=== PATIENT | male | born 1965 | race Caucasian/White ===

== ENCOUNTER 2017-07-15 05:28 | Inpatient (IN) | payer MEDICAID ==
[~2017-07-15] VITALS: Ht 185.4 cm; Wt 81.4 kg
[~2017-07-15 05:28] MED LIST: NAPROSYN500 MG PO; NORCO 5-325 TA1 EACH PO; TOPROL XL100 MG; TRAMADOL 50 MG50 MG PO
[2017-07-15 05:30] VITALS: BP 158/102
[2017-07-15] MEDS ORDERED: LASIX 20 MG TAB20 MG PO (05:39)
[2017-07-15] MEDS ORDERED: CARVEDILOL12.5 MG PO (05:40)
[2017-07-15] MEDS ORDERED: LISINOPRIL10 MG PO (05:40)
[2017-07-15] MEDS ORDERED: PACERONE100 MG PO (05:40)
[2017-07-15 05:47] LABS: ABSOLUTE BASOPHILS 0.1 thou/uL (0.0-0.2); ABSOLUTE EOSINOPHILS 0.1 thou/uL (0.0-0.7); ABSOLUTE LYMPHOCYTES 2.7 thou/uL (0.8-5.3); ABSOLUTE MONOCYTES 0.4 thou/uL (0.0-1.2); ABSOLUTE NEUTROPHILS 6.3 thou/uL (1.6-8.1); BASOPHILS 0.7 %; EOSINOPHILS 0.8 %; HEMATOCRIT 43.6 % (42.0-52.0); HEMOGLOBIN 14.4 gm/dL (14.0-18.0); LYMPHOCYTES 28.4 %; MCH 30.4 pg (26.0-34.0); MCHC 32.9 g/dL (28.0-37.0); MCV 92.5 fL (80.0-100.0); MONOCYTES 4.5 %; MPV 7.8 fl. (7.2-11.1); NUCLEATED RBCS 0 /100WBC; PLATELET COUNT* 315 thou/uL (150-400); POLYS 65.6 %; RBC 4.72 mil/uL (4.50-6.00); RDW-CV 14.8 % (10.5-14.5); WBC 9.6 thou/uL (4.0-11.0)
[2017-07-15 06:01] LABS: ANION GAP 8 mmol/L (7-16); BUN 19 mg/dL (7-18); CALCIUM 8.4 mg/dL (8.5-10.1); CHLORIDE 106 mmol/L (98-107); CO2 26 mmol/L (21-32); CREATININE 1.2 mg/dL (0.6-1.3); GLUCOSE 125 mg/dL (70-99); POTASSIUM 4.5 mmol/L (3.5-5.1); SODIUM 140 mmol/L (136-145)
--- NOTE | 2017-07-15 06:08 | NUR ---
RT HERE FOR BREATHING TREATMENT
[2017-07-15 06:12] LABS: ALBUMIN 3.1 g/dL (3.4-5.0); ALKALINE PHOSPHATASE 75 U/L (46-116); LIPASE 59 U/L (73-393); SGOT 30 U/L (15-37); SGPT 47 U/L (30-65); TOTAL BILIRUBIN 0.9 mg/dL (<0.1-1.0); TOTAL PROTEIN 7.2 g/dL (6.4-8.2); TROPONIN-I LEVEL <0.06 ng/mL (<0.06)
[2017-07-15 06:15] LABS: URINE BLOOD NEGATIVE (Negative); URINE CLARITY CLEAR; URINE COLOR YELLOW; URINE GLUCOSE-RANDOM NEGATIVE (Negative); URINE KETONES NEGATIVE (Negative); URINE LEUKOCYTES-REFLEX NEGATIVE (Negative); URINE NITRITE-REFLEX NEGATIVE (Negative); URINE PROTEIN 2+ (Negative); URINE SPECIFIC GRAVITY >= 1.030 (1.005-1.030); URINE UROBILINOGEN 0.2 E.U./dl (0.2-1.0)
[2017-07-15 06:17] LABS: ICTOTEST (BILI CONFIRMATORY) Negative (Negative); URINE BILIRUBIN 1+ (Negative)
[2017-07-15 06:22] LABS: AMP/METHAMP Negative (Negative); BACTERIA-REFLEX 1-9 Few /HPF (None Seen); BARBITURATES Negative (Negative); BENZODIAZEPINES Negative (Negative); CASTS None Seen /LPF (None Seen); COCAINE Negative (Negative); CRYSTALS None Seen /LPF (None Seen); METHADONE Negative (Negative); MUCUS >6 Heavy strn/LPF (None Seen); OPIATES Negative (Negative); PCP Negative (Negative); SQUAMOUS 0-3 Few /LPF (0-3); THC POSITIVE (Negative); URINE RBC 0-2 Rare /HPF (0-2); URINE WBC-REFLEX 0-5 Rare /HPF (0-5)
--- NOTE | 2017-07-15 09:19 | NUR ---
BREAKFAST TRAY PROVIDED FOR PT
[2017-07-15 11:13] VITALS: BP 135/97
--- NOTE | 2017-07-15 12:53 | EKG ---
[place] [address] ELECTROCARDIOGRAM REPORT Name: POP FABIAN Room: [place] [address] ADM IN M.R.#: [id number] Admission: 07/15/17 Attend Phys: Mynor Peralta Discharge: Date of : 69 Report #: [id number] THIS REPORT FOR: //name// [facility] ED Test Date: 2017-07-15 Test Time: 05:33:05 Pat Name: POP FABIAN Department: Room: [place] [address] Gender: M Harness Mender: ANA Nevarez : 1965 Requested By: Sanjana Verdin Order Number: [id number] Jami MD: Chris Noel Measurements Intervals [place] Rate: 103 P: 67 MN: 195 QRS: 21 QRSD: 94 T: 66 QT: 368 QTc: 482 Interpretive Statements Sinus tachycardia Probable left atrial enlargement Abnormal R-wave progression, late transition Baseline wander in lead(s) V1 No previous ECG available for comparison Electronically Signed On 07-15-2017 12:53:08 CORPORATE INTERN by Chris Noel [email or web address] <ELECTRONICALLY SIGNED> By: Chris Noel MD, [facility] 07/15/17 1253 [id number] [id number] Chris Noel MD, [facility] /EPI
[2017-07-15 13:57] VITALS: BP 123/92
--- NOTE | 2017-07-15 15:40 | NUR ---
RECIEVED REPORT VIA PHONE FROM MARC IN ED. ASSUMED CARE OF PT AT 1400. PT A/O X 4, VSS, 99% ON RA. TRACING NSR ON MONITOR. IV ACCESS LEFT AC 20 GAUGE SL. PT C/O ABDOMINAL PAIN AROUND THE UMBILICUS 11/23. MESSAGE PUT OUT TO ADMITTING DOCTOR FOR PAIN MEDICATIONS. PT IS WAITING FOR ECHO TO BE DONE. PT IS CALM, COOPERATIVE, AND MAKING JOKES WITH NURSING STAFF. PT WILL BE UP AD CARLOS TOLERATED. CALL LIGHT AND PERSONAL BELONGINGS WITHIN REACH RESIDENT CAME TO SEE PT AND ORDERED PAIN MEDICATION. YOUTH COUNSELOR CAME TO PREFORM ECHO IN PT ROOM.
--- NOTE | 2017-07-15 16:27 | 2DMMODE ---
[place] [address] 2 D/M-MODE ECHOCARDIOGRAM Name: POP FABIANMELBA Room: 231- ADM IN [facility]#: [id number] Admission: 07/15/17 Attend Phys: Hugh Edge Discharge: Date of : 69 Date of Service: 07/15/17 1627 Report #: [id number] THIS REPORT FOR: //name// APPROVED REPORT Study performed: 07/15/2017 15:39:16 EXAM: Comprehensive 2D, Doppler, and color-flow Echocardiogram Patient Location: In-Patient Room #: 231 Status: routine BSA: 2.06 HR: 82 bpm BP: 135/973 mmHg Rhythm: NSR Other Information Study Quality: Good Indications Congestive Heart Failure Dyspnea Cardiomegaly 2D Dimensions LVEF(%): 8.37 (>50%) IVSd: 10.15 (7-11mm) LVOT Diam: 22.20 (18-24mm) LVDd: 68.59 mm PWd: 9.07 (7-11mm) Ascending Ao: 33.85 (22-36mm) LVDs: 65.99 (25-40mm) Aortic Root: 31.69 mm Jordan's LVEF: 8.37 % Volumes Left Atrial Volume (Systole) LA ESV Index: 58.10 mL/m2 Aortic Valve AoV Peak Kulwinder.: 0.81 m/s AO Peak Gr.: 2.66 mmHg LVOT Max P.39 mmHg AO Mean Gr.: 1.76 mmHg LVOT Mean P.63 mmHg LVOT Max V: 0.59 m/s AO V2 VTI: 10.86 cm LVOT Mean V: 0.37 m/s EZEQUIEL (VTI): 2.57 cm2 LVOT V1 VTI: 7.22 [place] [address] 2 D/M-MODE ECHOCARDIOGRAM Name: POP FABIAN Room: [address] IN .R.#: [id number] Admission: 07/15/17 Attend Phys: Hugh Edge Discharge: Date of : 69 Date of Service: 07/15/17 1627 Report #: [id number] Mitral Valve E/A Ratio: 1.95 MV Decel. Time: 198.91 ms MV E Max Kulwinder.: 0.60 m/s MV PHT: 57.68 ms MVA (PHT): 3.81 cm2 TDI E/Lateral E': 10.00 E/Medial E': 15.00 Medial E' Kulwinder.: 0.04 m/s Lateral E' Kulwinder.: 0.06 m/s Pulmonary Valve PV Peak Kulwinder.: 0.60 m/s PV Peak Gr.: 1.43 mmHg Tricuspid Valve TR Peak Gr.: 16.75 mmHg RVSP: 21.00 mmHg Left Ventricle Left ventricle is moderately dilated. There is severe global hypokinesis. There is normal left ventricular wall thickness. Left ventricular systolic function is severely decreased. LVEF is 10-15%. Transmitral Doppler flow pattern suggests restrictive physiology. Right Ventricle Right ventricle is moderately dilated. The right ventricular systolic function is normal. Atria Left atrium is severely dilated. Right atrium is moderately dilated. Aortic Valve The aortic valve is normal in structure. No aortic regurgitation is present. There is no aortic valvular stenosis. Mitral Valve The mitral valve is normal in structure. Mild mitral regurgitation. No evidence of mitral valve stenosis. Tricuspid Valve The tricuspid valve is normal in structure. Moderate tricuspid regurgitation. The RVSP is 40 mmHg[place] [address] 2 D/M-MODE ECHOCARDIOGRAM Name: POP FABIAN Room: [address] IN [facility].#: [id number] Admission: 07/15/17 Attend Phys: Hugh Edge Discharge: Date of : 69 Date of Service: 07/15/17 1627 Report #: [id number] The pulmonary valve is normal in structure. Trace pulmonic regurgitation. Great Vessels The aortic root is normal in size. The IVC is dilated. Pericardium There is no pericardial effusion. <Conclusion> Left ventricle is moderately dilated. There is normal left ventricular wall thickness. Left ventricular systolic function is severely decreased. LVEF is 10-15%. Transmitral Doppler flow pattern suggests restrictive physiology. Right ventricle is moderately dilated. Left atrium is severely dilated. Right atrium is moderately dilated. Mild mitral regurgitation. Moderate tricuspid regurgitation. The RVSP is 40 mmHg. The IVC is dilated. <ELECTRONICALLY SIGNED> By: Chris Noel MD, FACC 07/15/17 1627 [id number] Chris Noel MD, FACC /INF
--- NOTE | 2017-07-15 18:48 | NUR ---
PT HAS BEEN A/O X 4, VSS, TRACING NSR ON MONITOR. PT HAS CLEAR BREATH SOUNDS.O2 SAT 99% ON RA. LEFT AC IV SALINE LOCKED. PT IS UP SELF IN ROOM WITH BRP. PT HAS BEEN EDUCATED TO CALL TO HAVE SCD CUFFS REMOVED OR TO REMOVE THEM HIMSELF. GI HAS BEEN CONSULTED, ANTICIPATE THEM TO ROUND TOMORROW. PT PREFERS TO GO BY [facility].PAIN CONTROLLED WITH IV PAIN MEDICATIONS. PLAN OF CARE DISCUSSED WITH PT. PROGRESSING TOWARDS GOALS. PT RESTING IN BED WITH CALL LIGHT AND PERSONAL BELONGINGS WITHIN REACH.
[2017-07-15 20:00] VITALS: BP 102/77
[2017-07-16 00:01] VITALS: BP 108/67
[2017-07-16 04:00] VITALS: BP 129/84
--- NOTE | 2017-07-16 04:22 | NUR ---
this nurse assumes care of pt 07/15/17 at 1930, pt is alert and oriented x4, complains of and is medicated for abdominal pain at bedtime, pt rests quietly throughout the night with no further complaints/concerns expressed, pt tracing sinus rhythm with 1st deg av block on cardiac surgeon, pt denies chest pain/ soa, remains on room air, up for bathroom privelages ad etta, pt continues progressing towards goals
[2017-07-16 05:27] LABS: HEMATOCRIT 38.3 % (42.0-52.0); HEMOGLOBIN 12.9 gm/dL (14.0-18.0); MCH 30.2 pg (26.0-34.0); MCHC 33.6 g/dL (28.0-37.0); MCV 89.8 fL (80.0-100.0); RBC 4.26 mil/uL (4.50-6.00); RDW-CV 14.6 % (10.5-14.5); WBC 7.9 thou/uL (4.0-11.0)
[2017-07-16 05:39] LABS: ALBUMIN 2.7 g/dL (3.4-5.0); CALCIUM 8.5 mg/dL (8.5-10.1); CREATININE 1.3 mg/dL (0.6-1.3); POTASSIUM 3.6 mmol/L (3.5-5.1); TOTAL BILIRUBIN 1.3 mg/dL (<0.1-1.0); TOTAL PROTEIN 6.4 g/dL (6.4-8.2)
[2017-07-16 08:00] VITALS: BP 113/70
--- NOTE | 2017-07-16 08:00 | NUR ---
AM ASSESSMENT COMPLETE, DEFER TO COMPUTER CHARTING. REGISTRATION MANAGER TRACKING SR WITH 1ST AVB. DENIES CHEST PAIN, DIZZINESS AT THIS TIME. ABD TENDER TO TOUCH, DENIES NAUSEA. CALL LIGHT WITHIN REACH. WILL MONITOR.
[2017-07-16 11:40] VITALS: BP 104/73
--- NOTE | 2017-07-16 14:45 | NUR ---
ATTEMPTED TO MEET WITH PT, HE STATED IT WASN'T A 'GOOD TIME.' TO HAVE PROCEDURE THIS AFTERNOON. WILL TRY LATER
--- NOTE | 2017-07-16 15:36 | NUR ---
RECIEVED REPORT FROM MCIKY AND ASSUMED CARE AT 1500. PT TAKEN DOWN FOR PIPIDA SCAN AT 1515. PT A/O X4 AND VSS.
[2017-07-16 17:07] VITALS: BP 124/89
--- NOTE | 2017-07-16 18:51 | NUR ---
PT HAS AMBULATED THE HALLS SEVERAL TIMES THIS EVENING. HAS A GOOD APPETITE. PT HAS EGD IN MORNING AND NEEDS TO BE NPO AT MIDNIGHT. PT DENIES PAIN AT THIS TIME AND IS RESTING IN CHAIR WITH CALL LIGHT IN REACH.EDUCATION GIVEN AND HOURLY ROUNDING COMPLETED FOR PT SAFETY.
[2017-07-16 20:00] VITALS: BP 109/64
[2017-07-17] VITALS: BP 109/79
[2017-07-17 04:54] VITALS: BP 105/73
--- NOTE | 2017-07-17 07:03 | NUR ---
ASSUMED CARE OF PT AT 1930, NURSING ASSESSMENT COMPLETED AT START OF SHIFT, PT CONTINUES ON TELE MONITOR TRACING SINUS RHYTHM, PT NPO AFTER MIDNIGHT FOR EGD. HOURLY ROUNDING COMPLETED, CALL LIGHT WITHIN REACH. PRN PAIN MEDICATION ADMINISTERED X1 THIS SHIFT. PT PROGRESSING TOWARDS GOALS.
[2017-07-17 09:05] LABS: ABSOLUTE BASOPHILS 0.1 thou/uL (0.0-0.2); ABSOLUTE LYMPHOCYTES 2.3 thou/uL (0.8-5.3); ABSOLUTE MONOCYTES 0.5 thou/uL (0.0-1.2); BASOPHILS 0.9 %; EOSINOPHILS 0.7 %; HEMATOCRIT 39.3 % (42.0-52.0); HEMOGLOBIN 13.2 gm/dL (14.0-18.0); LYMPHOCYTES 33.8 %; MCH 30.1 pg (26.0-34.0); MCHC 33.6 g/dL (28.0-37.0); MCV 89.5 fL (80.0-100.0); MONOCYTES 7.3 %; MPV 8.3 fl. (7.2-11.1); NUCLEATED RBCS 0 /100WBC; PLATELET COUNT* 264 thou/uL (150-400); POLYS 57.3 %; RBC 4.39 mil/uL (4.50-6.00); RDW-CV 14.6 % (10.5-14.5); WBC 6.9 thou/uL (4.0-11.0)
[2017-07-17 09:20] LABS: ALBUMIN 2.7 g/dL (3.4-5.0); CALCIUM 8.4 mg/dL (8.5-10.1); CREATININE 1.2 mg/dL (0.6-1.3); POTASSIUM 3.9 mmol/L (3.5-5.1); TOTAL BILIRUBIN 1.4 mg/dL (<0.1-1.0); TOTAL PROTEIN 6.3 g/dL (6.4-8.2)
[2017-07-17 10:35] VITALS: BP 112/74
--- NOTE | 2017-07-17 10:35 | NUR ---
ASSUMED PT CARE 0730. AT SHIFT CHANGE PT SLEEPING. WHEN RN WENT IN TO ASSESS PT , PT NOT IN ROOM. PT NOT FOUND ON UNIT. PT RETURNED TO ROOM WITH IN MINUTES AND WAS EDUCATED TO STAY ON UNIT. PT AGITATED/ ANXIOUS/ ASKED TO EAT. PT HAD BEEN NPO FOR EGD. EDG CANCELLED PER GI. WHEN CANCELLED DIET ORDERED FOR PT. PT ATE AND THEN AGREEABLE TO ASSESSMENT. MEDICATIONS ADMININSTERED PER JUL.
[2017-07-17 12:00] VITALS: BP 116/67
--- NOTE | 2017-07-17 12:35 | NUR ---
RECEIVED DISCHARGE ORDERS. IV AND SPEEDER WORKER DC'D. PT EDUCATED ON F/U APPOINTMENTS AND SYMPTOMS TO NOTIFY TO DR. PT COMMUNICATES UNDERSTANDING. PT ASKED FOR URINE DRUG SCREEN TEST. UDS PRINTED AND GIVEN TO PT PER PT REQUEST.
--- NOTE | 2017-07-22 14:51 | CON ---
[address] [address] CONSULTATION Name: CAREN,POP CORTEZ Room: [address] IN M.R.#: [id number] Admission: 07/15/17 Attend Phys: Mynor Peralta Discharge: 07/17/17 Date of : 69 Report #: [id number] THIS REPORT FOR: //name// CC: Paul Edge DATE OF SERVICE: 07/16/2017 ADDENDUM The patient with history of peptic ulcer disease and multiple endoscopies who presents with abdominal pain. Abdominal ultrasound suggestive of pericholecystic fluid and some thickening of the gallbladder. There is no evidence of cholelithiasis or choledocholithiasis. Liver function tests are all within normal. Bilirubin is mildly elevated at 1.3. We will follow up with a HIDA scan, which has been ordered and based on that, we will make recommendation. The patient is agreeable with plan. <ELECTRONICALLY SIGNED> By: Pushpa Marcano MD 07/22/17 1451 1635 [id number] Marcano MD /nt
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
== END 2017-07-17 13:14 | disposition home or self-care (01) | DRG 292 ==
LOC: M.ERS 05:28 → M.TBA-ER 07:22 → M.2W 14:09
PROVIDERS: Emergency Medicine; ADMIT Internal Medicine
DX: I11.0 Hypertensive heart disease with heart failure (principal); R18.8 Other ascites; I50.9 Heart failure, unspecified; R10.13 Epigastric pain; R16.0 Hepatomegaly, not elsewhere classified; K82.8 Other specified diseases of gallbladder; I42.9 Cardiomyopathy, unspecified; Z79.899 Other long term (current) drug therapy; Z86.73 Personal history of transient ischemic attack (TIA), and cerebral infarction without residual deficits; Z87.11 Personal history of peptic ulcer disease

== ENCOUNTER 2017-10-07 12:01 | Inpatient (IN) | payer MEDICAID ==
[~2017-10-07] VITALS: Ht 185.4 cm; Wt 84.4 kg
--- NOTE | ~2017-10-07 | PROC ---
[address] [address] PROCEDURE REPORT Name: POP FABIAN Room: [address] IN M.R.#: [id number] Admission: 10/07/17 Attend Phys: Dimas Pereira Discharge: 10/11/17 Date of : 69 Report #: [id number] THIS REPORT FOR: //name// For GI report, please see the Provation report in Perceptive 7 content. By: 0659Medical Records Staff BRIGIDO /GUSTAVO
[~2017-10-07 12:01] MED LIST changes: +CARVEDILOL12.5 MG PO; +LASIX 20 MG TAB20 MG PO; +LISINOPRIL10 MG PO; +PACERONE100 MG PO
[2017-10-07 12:03] VITALS: BP 156/118
[2017-10-07 12:44] LABS: ABSOLUTE BASOPHILS 0.1 thou/uL (0.0-0.2); ABSOLUTE EOSINOPHILS 0.1 thou/uL (0.0-0.7); ABSOLUTE LYMPHOCYTES 1.6 thou/uL (0.8-5.3); ABSOLUTE MONOCYTES 0.5 thou/uL (0.0-1.2); ABSOLUTE NEUTROPHILS 6.4 thou/uL (1.6-8.1); BASOPHILS 0.9 %; EOSINOPHILS 0.6 %; HEMATOCRIT 44.8 % (42.0-52.0); HEMOGLOBIN 14.7 gm/dL (14.0-18.0); LYMPHOCYTES 18.8 %; MCH 29.9 pg (26.0-34.0); MCHC 32.8 g/dL (28.0-37.0); MCV 91.4 fL (80.0-100.0); MONOCYTES 5.8 %; MPV 8.1 fl. (7.2-11.1); NUCLEATED RBCS 0 /100WBC; PLATELET COUNT* 241 thou/uL (150-400); POLYS 73.9 %; RDW-CV 17.4 % (10.5-14.5); WBC 8.7 thou/uL (4.0-11.0)
[2017-10-07 12:52] LABS: APTT 24.7 Seconds (25.0-31.3); INR 1.2; PROTIME 11.3 Seconds (9.20-11.50)
[2017-10-07 12:53] LABS: ANION GAP 7 mmol/L (7-16); BUN 18 mg/dL (7-18); CALCIUM 8.3 mg/dL (8.5-10.1); CHLORIDE 105 mmol/L (98-107); CO2 27 mmol/L (21-32); GLUCOSE 97 mg/dL (70-99); POTASSIUM 4.1 mmol/L (3.5-5.1); SODIUM 139 mmol/L (136-145)
[2017-10-07 13:03] LABS: ALBUMIN 3.2 g/dL (3.4-5.0); ALKALINE PHOSPHATASE 82 U/L (46-116); LIPASE 48 U/L (73-393); MAGNESIUM 1.9 mg/dL (1.8-2.4); NT-PRO BRAIN NAT PEPTIDE 15961 pg/mL (<300); SGOT 31 U/L (15-37); SGPT 39 U/L (30-65); TOTAL BILIRUBIN 0.8 mg/dL (<0.1-1.0); TOTAL PROTEIN 7.2 g/dL (6.4-8.2); TROPONIN-I LEVEL <0.06 ng/mL (<0.06)
--- NOTE | 2017-10-07 14:15 | NUR ---
ISIS NOTIFIED UPON PT RETURN FROM CT. PT CONNECTED TO MONITOR AND O2
[2017-10-07 16:15] VITALS: BP 144/102
[2017-10-07 16:24] VITALS: BP 140/106
--- NOTE | 2017-10-07 16:49 | NUR ---
RECIEVED REPORT FROM [facility] RN IN ER OF EXPECTED TRANSFER AT 1528- DX: CHEST/ABD PAIN WITH SOA X2 DAYS- PT ARRIVED TO UNIT VIA CART AT 1600- SBA TO BED FOR SAFETY- NURSE OBGYN PLACED INDICATED, SR NOTED- VS 97.4 20 140/106 83 100% ON RA- PT A&O X4- CONTINENT OF BOWEL AND BLADDER- LCTA, LABORED BREATHING AT TIMES NOTED- PT REPORTS SOA ON EXERTION- ABDOMEN SOFT/ROUND/NON-TENDER, BS X4 QUADS- LAST BM REPORTED 10/06/17- PT REPORTS TIGHNESS TO BE RESOLVED TO ABDOMEN POST LASIX ADMINISTRATION IN ER- 1+ PITTING EDEMA WITH SOME DISCOLORATION NOTED TO BLE, NOTED TO BE COOL WELL- C/D/I, WITH NOTED TATOOS- IV NOTED TO LEFT FA AND RIGHT AC INTACT AND SL- PT STAES HE QUIT SMOKING ABOUT 2 WEEKS AGO, BUT STATES HE DIDN'T SMOKE A WHOLE LOT TO BEGIN WITH- REPORTS TO BE CURRENT MARIJUANA SMOKER, AND 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
[2017-10-08 00:54] VITALS: BP 128/100
--- NOTE | 2017-10-08 04:03 | NUR ---
ASSUMED PT CARE AT 1930. ASSESSMENT COMPLETED CHARTED. A & O X 4, ABLE TO MAKE NEEDS KNOWN, PAIN TO ABDOMEN, SOME SHAKING NOTED, GOT IMPATIENT ABOUT GETTING PAIN MEDICATION, APPOLOGIZED SEVERAL TIMES, PT SLEEPING AT THIS TIME. STATED EARLIER THAT HE WANTED TO PASS WITH DIGNITY, BUT NOT NOW. VSS. UP AD CARLOS, SR ON THE MONITOR. WILL CONTINUE WITH PLAN OF CARE.
[2017-10-08 04:27] VITALS: BP 152/105
[2017-10-08 08:00] VITALS: BP 154/118
--- NOTE | 2017-10-08 09:01 | NUR ---
vss, assumed care IN THE AM, ASSESSMENT PERFORMED AND CHARTED, FALL PRECAUTIONS IN PLACE AND CALL LIGHT IN REACH, PT IS A&04 AND UP AD CARLOS, TRACING SR ON THE MONITOR AND STATES PAIN IN HIS BACK, PT GOAL IS TO SIT UP IN CHAIR AND IMPROVE ACTIVITY, WILL FOLLOW WITH PLAN OF CARE.
[2017-10-08 11:30] VITALS: BP 139/102
--- NOTE | 2017-10-08 14:30 | NUR ---
Pt is A&O. Resides at home alone. Independent with ADLs. No DME. No hx of HH or SNF. Supportive family that is involved in POC. Goal is to return home at dc. Following for disposition.
[2017-10-08 16:17] VITALS: BP 126/95
--- NOTE | 2017-10-08 17:06 | EKG ---
[place] [address] ELECTROCARDIOGRAM REPORT Name: POP FABIAN Room: [address] ADM IN M.R.#: [id number] Admission: 10/07/17 Attend Phys: Dimas Pereira Discharge: Date of : 69 Report #: [id number] THIS REPORT FOR: //name// [facility] ED Test Date: 2017-10-07 Test Time: 12:04:41 Pat Name: POP FABIAN Department: Room: Gender: M Disulfurizer Tender: Roque GOODWIN : 1965 Requested By: Martin Cramer Order Number: [id number] MD: Omer Gonsalves Measurements Intervals [place] Rate: 97 P: 82 MN: 206 QRS: 16 QRSD: 106 T: 7 QT: 381 QTc: 484 Interpretive Statements Sinus rhythm Prolonged MN interval Probable left atrial enlargement Left ventricular hypertrophy Borderline prolonged QT interval Compared to ECG 07/15/2017 05:33:05 First degree AV block now present Left ventricular hypertrophy now present Sinus tachycardia no longer present Electronically Signed On 10-08-2017 17:06:23 CDT by Omer Gonsalves [email or web address] <ELECTRONICALLY SIGNED> By: Omer Gonsalves MD, [facility] 10/08/17 1706 1204 1204 Omer Gonsalves MD, FAC /EPI
--- NOTE | 2017-10-08 18:09 | NUR ---
VSS. PT IS PROGRESSING TOWARDS GOAL, PT IS A&O4 BUT IS SLEEPY, PT IS TRACING SR ON THE MONITOR, HIS PAIN HAS BEEN WELL CONTROLED, EDEMA HAS DECREASED IN LEGS AND ABDOMIN AND IS TRACE AT THIS TIME IN LEGS, PT GETS UP AD CARLOS AND HOURLY ROUNDS COMPLETED.
[2017-10-08 20:00] VITALS: BP 141/103
[2017-10-09 00:39] VITALS: BP 148/95
--- NOTE | 2017-10-09 02:58 | NUR ---
ASSUMED PT CARE AT 1930, PT IS A&OX4, PT IS TRACING NSR WITH A 1DAVB ON THE MONITOR, ONRA SATTING MID TO HIGH 90'S. AT THE START OF SHIFT PT VOMITIED ROUGHLY 300 MLS. NOTIFIED AND NEW ORDERS GIVEN. PT C/O ABD PAIN THIS SHIFT, PRN PAIN MEDICATIONS GIVEN PER JUL. PT IS UP AD CARLOS IN HIS ROOM AND APPEARS STABLE ON HIS FEET. BED IN LOW POSITION, CALL LIGHT IN REACH,HOURLY ROUNDING COMPLETED FOR PT SAFETY.
[2017-10-09 04:23] VITALS: BP 102/40; BP 149/100
[2017-10-09 08:00] VITALS: BP 144/102
--- NOTE | 2017-10-09 08:00 | NUR ---
PT RESTING IN BED, WITHOUT C/O , APPEARS O X 4, DENIES CHEST PAIN, SOB, C/O SOME ABDOMINAL PAIN,, STATES ADEQ PAIN RELIEF EARLEIR WITH IV DIILAUDID, SL, SR C 1ST avb, PER REPORT EF 12 %
[2017-10-09 11:30] VITALS: BP 132/92
[2017-10-09 16:00] VITALS: BP 110/69
--- NOTE | 2017-10-09 18:59 | NUR ---
PT RESTING IN BED, REMAINS O X 4, DENIES CHEST PAIN, SOB, , PT STAYED IN BED, MOST OF DAY. C/O ABDOMINAL PAIN , IN AFTERNOON, REPORTS GOOD RELIEF C IV DILAUDID
[2017-10-09 20:00] VITALS: BP 118/87
[2017-10-10 00:38] VITALS: BP 101/74
[2017-10-10 04:38] VITALS: BP 111/77
[2017-10-10 05:04] LABS: HEMATOCRIT 39.9 % (42.0-52.0); HEMOGLOBIN 13.5 gm/dL (14.0-18.0); MCHC 33.9 g/dL (28.0-37.0); MCV 88.4 fL (80.0-100.0); MPV 8.3 fl. (7.2-11.1); RBC 4.51 mil/uL (4.50-6.00); RDW-CV 16.8 % (10.5-14.5); WBC 9.2 thou/uL (4.0-11.0)
[2017-10-10 05:28] LABS: CALCIUM 8.1 mg/dL (8.5-10.1); CREATININE 1.1 mg/dL (0.6-1.3); MAGNESIUM 1.9 mg/dL (1.8-2.4)
--- NOTE | 2017-10-10 06:02 | NUR ---
ASSUMED PT CARE AT 1930, PT IS A&OX4, PT IS TRACING NSR ON THE MONITOR, ON RA SATTING MID TO HIGH 90'S. PT C/O ABD PAIN THIS SHIFT, PRN PAIN MEDICATIONS GIVEN PER JUL. PT STATES RELIEF WITH MEDICATION. PT IS UP AD CARLOS IN HIS ROOM. APPEARS STABLE ON HIS FEET. BED IN LOW POSITION, CALL LIGHT IN REACH. HOURLY ROUNDING COMPLETED FOR PT SAFETY.
[2017-10-10 12:00] VITALS: BP 102/62
[2017-10-10 16:00] VITALS: BP 121/72
[2017-10-10 20:00] VITALS: BP 116/77
--- NOTE | 2017-10-10 20:19 | NUR ---
ASSUMED CARE OF PT AT 0730. PT CONTINUES TO BE A&O X4 CALM AND COOPERATIVE. PT VSS ON ROOM AIR AND TRACING SR WITH A FIRST DEGREE AV BLOCK. PT UP AD CARLOS IN ROOM. PT C/O ABD PAIN CONTROLLED WITH PRN PAIN MEDS. MEDICATIONS ADMINISTERED PER JUL. NURSING ASSESSMENT COMPLETED AND DOCUMENTED, NURSING WILL CONTINUE TO MONITOR.
[2017-10-11] VITALS (7 sets, daily range): BP systolic 113–142; BP diastolic 72–98
--- NOTE | 2017-10-11 04:24 | NUR ---
ASSUMED PT CARE AT 1930, PT IS A&OX4, PT C/O ABD PAIN, PRN PAIN MEDICATIONS GIVEN PER JUL. PT IS TRACING NSR ON THE MONITOR, WITH OCCASIONAL 1DAVB. PT IS ON RA SATTING MID TO HIGH 90'S. PT IS NPO AT THIS TIME FOR PENDING EGD. PT IS UP AD CARLOS IN HIS ROOM AND APPEARS STABLE ON HIS FEET. PT IS REQUESTED PAIN MEDICATION BE DC'D HE "WANTS TO WEAN OFF OF IT, IF IT IS NOT AVAILABLE I WILL NOT BE TEMPTED TO USE IT" THIS WILL BE OASSED ALONG TO MD WELL DAY RN. PT REWQUESTED THAT SPIRITUAL CARE COME VISIT WITH HIM IN THE AM. BED IN LOW POSITION, CALL LIGHT IN REACH, HOURLY ROUNDING COMPELTED FOR PT SAFETY.
--- NOTE | 2017-10-11 07:48 | NUR ---
Pt resting in bed, appears alert o x 4, denies chest pain, SOB, states sl abdominal pain, denies need for pain RX, NPO for EGD, consent signed, in chart
--- NOTE | 2017-10-11 08:22 | CON ---
[address] [address] CONSULTATION Name: POP FABIAN Room: [address] IN M.R.#: [id number] Admission: 10/07/17 Attend Phys: Dimas Pereira Discharge: Date of : 69 Report #: [id number] THIS REPORT FOR: //name// CC: Carlos A Bass MD DATE OF SERVICE: 10/08/2017 REQUESTING PHYSICIAN: Russ Solo MD REASON FOR CONSULT: Abdominal pain. HISTORY OF PRESENT ILLNESS: This is a 52-year-old male with a history of intermittent abdominal pain. The patient reports that his abdominal pain is better now. He has a history of peptic ulcer disease that goes back to 15 years ago. He had presented to hospital in July with similar symptoms. He denies any diarrhea, constipation, hematochezia or melena. He also denies any nausea or vomiting and hematemesis. PAST MEDICAL HISTORY: Significant for history of cardiomyopathy, CHF, hypertension, peptic ulcer disease, hernia repair, polysubstance abuse and dependence. ALLERGIES: No known drug allergy. MEDICATIONS: Please refer to hospital MAR. SOCIAL HISTORY: The patient reports that he may occasionally smoke marijuana, a couple of times a month. He also does occasionally smoke a cigarette, but does not drink alcohol. He is single and his daughter occasionally stays with him. FAMILY HISTORY: Negative for GI malignancy. PHYSICAL EXAMINATION: VITAL SIGNS: Reveals blood pressure of 126/95, respirations 19, pulse 102, temperature 97.4. LUNGS: Clear. CARDIOVASCULAR: Regular. ABDOMEN: Soft, nontender, nondistended. NEUROLOGIC: The patient is alert, oriented x 3. LABORATORY DATA: Reveal sodium of 139, potassium 4.1, BUN is 18, creatinine 1.0, glucose 97. AST is 31, ALT 39, total bilirubin is 0.8, alkaline phosphatase is 82. INR is 1.2. WBC is 8.7 with hemoglobin of 14.7 and platelet of 241. [place] [address] CONSULTATION Name: POP FABIAN Room: [address] IN ..#: [id number] Admission: 10/07/17 Attend Phys: Dimas Pereira Discharge: Date of : 69 Report #: [id number] IMAGING: CT of abdomen and pelvis was obtained on admission. There is a gallbladder wall thickening, unchanged from prior study. He also has abdominal ascites with no focal hepatic masses. ASSESSMENT AND PLAN: The patient with history of peptic ulcer disease dating back to 15 years ago. He has abdominal pain, which he claims is better. He has a cardiomyopathy and congestive heart failure with ejection fraction of 12%. In order for us to do any kind of procedure on him, we need Cardiology consult and clearance. Meanwhile, we will recommend daily PPI, Protonix 40 mg q.a.m. <ELECTRONICALLY SIGNED> By: Pushpa Marcano MD 10/11/17 0822 1712 [id number] Marcano MD /nt
--- NOTE | 2017-10-11 10:19 | NUR ---
PT REETURNED TO FLOOR FROM GI, , PT IS ALERT O X 4, DENIES CHEST PAIN, SOB, PAIN OR DISCOMFORT
[2017-10-11] MEDS ORDERED: CARVEDILOL25 MG PO (14:30)
[2017-10-11] MEDS ORDERED: PRINIVIL20 MG PO (14:31)
[2017-10-11] MEDS ORDERED: ALDACTONE25 MG PO (14:31)
[2017-10-11] MEDS ORDERED: PROTONIX 20 MG20 M1 PO (14:31)
--- NOTE | 2017-10-13 16:08 | PATH ---
[facility] [address] [place] [address] PATHOLOGY RPT PROCEDURE Name: POP FABIAN Room: [address] IN M.R.#: [id number] Admission: 10/07/17 Date of : 69 Discharge: 10/11/17 Report #: [id number] Path Case #: [id number] [facility] Accession Number: [id number] . 01 Material submitted: . DUODENAL BIOPSY R/O CELIAC SPRUE . 01 Clinical history: . R/O celiac sprue . 02 Diagnosis: Duodenal biopsy: - Normal duodenal mucosa. (ALEXSANDRA:db; 10/13/2017) LBQ/10/13/2017 . 02 Electronically signed: . Timo Falcon MD, Pathologist NPI- [id number] . 01 Gross description: . Received in formalin labeled "Pop Fabian, duodenal biopsy R/O celiac sprue," are four segments of sampson soft tissue measuring 0.7 x 0.5 x 0.3 cm in aggregate dimensions and ranging from 0.2 to 0.4 cm in maximum dimension. The specimen is submitted entirely in cassette A1. (DAC; 10/12/2017) XDC/XDC . 02 CPT . [id number] Performed at: [address], [place], [place] [id number] MD David Wilson MD Phone: [phone] Performed at: 02 [facility] [address], [place], [place] [id number] MD Timo Falcon MD Phone: [phone]
== END 2017-10-11 16:00 | disposition home or self-care (01) | DRG 291 ==
LOC: M.ERS 12:01 → M.TBA-ER 13:51 → M.2W 13:51
PROVIDERS: Emergency Medicine Emergency Medical Services; Family Medicine; ADMIT Internal Medicine
PROC: 0DJ08ZZ Inspection of Upper Intestinal Tract, Via Natural or Artificial Opening Endoscopic (ICD-10-PCS; principal; 2017-10-11)
DX: I11.0 Hypertensive heart disease with heart failure (principal); J96.01 Acute respiratory failure with hypoxia; J98.11 Atelectasis; I50.23 Acute on chronic systolic (congestive) heart failure; I42.8 Other cardiomyopathies; F12.90 Cannabis use, unspecified, uncomplicated; F41.9 Anxiety disorder, unspecified; I07.1 Rheumatic tricuspid insufficiency; I27.20 Pulmonary hypertension, unspecified; Z79.899 Other long term (current) drug therapy; Z87.11 Personal history of peptic ulcer disease; Z87.891 Personal history of nicotine dependence; Z82.49 Family history of ischemic heart disease and other diseases of the circulatory system

== ENCOUNTER 2017-10-16 21:08 | Emergency (ER) | payer MEDICAID ==
[~2017-10-16] VITALS: Ht 185.4 cm; Wt 81.7 kg
[~2017-10-16 21:08] MED LIST changes: +ALDACTONE25 MG PO; +CARVEDILOL25 MG PO; +PRINIVIL20 MG PO; +PROTONIX 20 MG20 M1 PO
[2017-10-16 22:22] LABS: ABSOLUTE BASOPHILS 0.1 thou/uL (0.0-0.2); ABSOLUTE LYMPHOCYTES 2.9 thou/uL (0.8-5.3); ABSOLUTE MONOCYTES 0.8 thou/uL (0.0-1.2); ABSOLUTE NEUTROPHILS 7.5 thou/uL (1.6-8.1); BASOPHILS 0.6 %; EOSINOPHILS 0.2 %; HEMOGLOBIN 15.2 gm/dL (14.0-18.0); LYMPHOCYTES 25.6 %; MCH 29.6 pg (26.0-34.0); MCV 89.9 fL (80.0-100.0); MONOCYTES 6.8 %; MPV 7.5 fl. (7.2-11.1); NUCLEATED RBCS 0 /100WBC; PLATELET COUNT* 268 thou/uL (150-400); POLYS 66.8 %; RBC 5.11 mil/uL (4.50-6.00); WBC 11.3 thou/uL (4.0-11.0)
[2017-10-16 22:26] LABS: CALCIUM 8.5 mg/dL (8.5-10.1); CREATININE 1.1 mg/dL (0.6-1.3); POTASSIUM 4.5 mmol/L (3.5-5.1)
[2017-10-16 22:27] LABS: APTT 26.3 Seconds (25.0-31.3); INR 1.3; PROTIME 12.7 Seconds (9.20-11.50)
[2017-10-16 22:39] LABS: ALBUMIN 3.2 g/dL (3.4-5.0); TOTAL BILIRUBIN 2.1 mg/dL (<0.1-1.0)
[2017-10-16 22:43] LABS: NT-PRO BRAIN NAT PEPTIDE 33908 pg/mL (<300); TROPONIN-I LEVEL <0.06 ng/mL (<0.06)
[2017-10-16 23:03] LABS: URINE BILIRUBIN NEGATIVE (Negative); URINE BLOOD TRACE (Negative); URINE CLARITY CLEAR; URINE COLOR YELLOW; URINE GLUCOSE-RANDOM NEGATIVE (Negative); URINE KETONES NEGATIVE (Negative); URINE LEUKOCYTES-REFLEX NEGATIVE (Negative); URINE NITRITE-REFLEX NEGATIVE (Negative); URINE PROTEIN 2+ (Negative); URINE UROBILINOGEN 0.2 E.U./dl (0.2-1.0)
[2017-10-16 23:11] LABS: AMP/METHAMP Negative (Negative); BARBITURATES Negative (Negative); BENZODIAZEPINES Negative (Negative); COCAINE Negative (Negative); METHADONE Negative (Negative); OPIATES Negative (Negative); PCP Negative (Negative); THC POSITIVE (Negative)
[2017-10-16 23:19] LABS: MUCUS 4-6 Moderate strn/LPF (None Seen); SQUAMOUS 0-3 Few /LPF (0-3); URINE RBC 3-10 Few /HPF (0-2); URINE WBC-REFLEX None Seen /HPF (0-5)
[2017-10-16 23:20] LABS: CRYSTALS None Seen /LPF (None Seen); HYALINE CASTS 0-3 Few /LPF (None Seen)
[2017-10-16] MEDS ORDERED: ULTRAM 50MG TAB50 MG PO (23:45)
[2017-10-16] MEDS ORDERED: REGLAN 10 MG TA10 MG PO (23:45)
[2017-10-16] MEDS ORDERED: AMBIEN 10 MG TA10 MG PO (23:45)
[2017-10-17 00:19] VITALS: BP 153/110
--- NOTE | 2017-10-17 14:56 | EKG ---
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 : 1965 Requested By: Debbie Washington Order Number: [id number] MD: Bharathi Amanda Measurements Intervals [place] Rate: 95 P: 119 FL: 207 QRS: 26 QRSD: 103 T: 209 QT: 385 QTc: 484 Interpretive Statements Sinus rhythm incomplete RBBB Prolonged FL interval Left atrial enlargement LVH with secondary repolarization abnormality Anterior infarct, age indeterminate Compared to ECG 10/07/2017 12:04:41 LEFT VENTRICULAR HYPERTROPHY now seen incomplete RIGHT BUNDLE BRANCH BLOCK noted Myocardial infarct finding now present Electronically Signed On 10-17-2017 14:55:56 CDT by Bharathi Amanda [email or web address] <ELECTRONICALLY SIGNED> By: Bharathi Amanda MD, [facility] 10/17/17 1455 2244 2244 Bharathi Amanda MD, [facility] /EPI
== END 2017-10-17 00:22 | disposition home or self-care (01) ==
LOC: M.ERS 21:08
PROVIDERS: Personal Emergency Response Attendant
DX: R18.8 Other ascites (principal); I11.0 Hypertensive heart disease with heart failure; I50.9 Heart failure, unspecified

== ENCOUNTER 2017-10-21 05:00 | Inpatient (IN) | payer MEDICAID ==
[~2017-10-21] VITALS: Ht 185.4 cm; Wt 67.1 kg
[~2017-10-21 05:00] MED LIST changes: +AMBIEN 10 MG TA10 MG PO; +REGLAN 10 MG TA10 MG PO; +ULTRAM 50MG TAB50 MG PO
[2017-10-21 05:07] VITALS: BP 110/68
[2017-10-21 05:39] LABS: ABSOLUTE BASOPHILS 0.1 thou/uL (0.0-0.2); ABSOLUTE LYMPHOCYTES 1.7 thou/uL (0.8-5.3); ABSOLUTE NEUTROPHILS 5.6 thou/uL (1.6-8.1); BASOPHILS 0.9 %; EOSINOPHILS 0.6 %; HEMATOCRIT 38.2 % (42.0-52.0); HEMOGLOBIN 12.7 gm/dL (14.0-18.0); LYMPHOCYTES 20.2 %; MCH 30.2 pg (26.0-34.0); MCHC 33.2 g/dL (28.0-37.0); MONOCYTES 11.3 %; MPV 7.8 fl. (7.2-11.1); NUCLEATED RBCS 0 /100WBC; PLATELET COUNT* 198 thou/uL (150-400); RDW-CV 16.8 % (10.5-14.5); WBC 8.4 thou/uL (4.0-11.0)
[2017-10-21 05:47] LABS: ANION GAP 9 mmol/L (7-16); BUN 25 mg/dL (7-18); CALCIUM 7.7 mg/dL (8.5-10.1); CHLORIDE 102 mmol/L (98-107); CO2 23 mmol/L (21-32); CREATININE 1.4 mg/dL (0.6-1.3); GLUCOSE 136 mg/dL (70-99); POTASSIUM 3.7 mmol/L (3.5-5.1); SODIUM 134 mmol/L (136-145)
[2017-10-21 05:52] LABS: ACETAMINOPHEN < 2 ug/mL (10-30); ALCOHOL < 10 mg/dL (<10)
[2017-10-21 05:53] LABS: SALICYLATE < 2.8 mg/dL (2.8-20.0)
[2017-10-21 05:58] LABS: ALBUMIN 2.7 g/dL (3.4-5.0); ALKALINE PHOSPHATASE 76 U/L (46-116); AMMONIA 32 umol/L (11-32); LIPASE 111 U/L (73-393); NT-PRO BRAIN NAT PEPTIDE 11942 pg/mL (<300); SGOT 467 U/L (15-37); SGPT 756 U/L (30-65); TOTAL BILIRUBIN 1.6 mg/dL (<0.1-1.0); TROPONIN-I LEVEL <0.06 ng/mL (<0.06)
[2017-10-21 07:16] LABS: URINE BILIRUBIN NEGATIVE (Negative); URINE BLOOD NEGATIVE (Negative); URINE CLARITY CLEAR; URINE COLOR YELLOW; URINE GLUCOSE-RANDOM NEGATIVE (Negative); URINE KETONES NEGATIVE (Negative); URINE LEUKOCYTES-REFLEX NEGATIVE (Negative); URINE NITRITE-REFLEX NEGATIVE (Negative); URINE PROTEIN 2+ (Negative); URINE SPECIFIC GRAVITY 1.025 (1.005-1.030)
[2017-10-21 07:27] LABS: AMP/METHAMP POSITIVE (Negative); BARBITURATES Negative (Negative); BENZODIAZEPINES Negative (Negative); COCAINE Negative (Negative); METHADONE Negative (Negative); OPIATES Negative (Negative); PCP Negative (Negative); THC POSITIVE (Negative)
[2017-10-21 07:31] LABS: BACTERIA-REFLEX 1-9 Few /HPF (None Seen); MUCUS >6 Heavy strn/LPF (None Seen); SQUAMOUS 0-3 Few /LPF (0-3); URINE RBC 0-2 Rare /HPF (0-2); URINE WBC-REFLEX 0-5 Rare /HPF (0-5)
[2017-10-21 07:32] LABS: CRYSTALS None Seen /LPF (None Seen); HYALINE CASTS 4-10 Moderate /LPF (None Seen)
--- NOTE | 2017-10-21 08:00 | NUR ---
DR DE LA GARZA HERE TO SEE PATIENT. MOTHER TOLD HIM THAT PATIENT HAS MADE REMARKS ABOUT "ENDING THINGS" DR DE LA GARZA ASKED MOTHER TO FILL OUT AFFIDAVIT WHICH WAS DONE AND SI PRECAUTIONS PUT IN PLACE.
--- NOTE | 2017-10-21 08:28 | NUR ---
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
--- NOTE | 2017-10-21 08:30 | NUR ---
, MOTHER, ALEJANDRO CHACE
--- NOTE | 2017-10-21 09:57 | NUR ---
PATIENT TAKEN TO CT WITH COIL WINDING SUPERVISOR, RN AND TECH AND RETURNED WITH THE SAME
--- NOTE | 2017-10-21 11:42 | EKG ---
[place] [address] ELECTROCARDIOGRAM REPORT Name: POP FABIAN Room: 170-9 ADM IN .R.#: [id number] Admission: 10/21/17 Attend Phys: Shakeel Jerome MD Discharge: Date of : 69 Report #: [id number] THIS REPORT FOR: //name// [facility] ED Test Date: 2017-10-21 Test Time: 05:27:06 Pat Name: POP FABIAN Department: Room: Gender: Audio Visual Aids Director: [facility] : 1965 Requested By: Thanh Mei Order Number: [id number] MD: Oemr Gonsalves Measurements Intervals [place] Rate: 83 P: 76 MS: 204 QRS: 11 QRSD: 106 T: -31 QT: 414 QTc: 487 Interpretive Statements Sinus rhythm Borderline prolonged MS interval Left ventricular hypertrophy Borderline T abnormalities, inferior leads Borderline prolonged QT interval Compared to ECG 10/16/2017 22:44:17 T-wave abnormality now present Right bundle-branch block no longer present Atrial abnormality no longer present Early repolarization no longer present Myocardial infarct finding no longer present Electronically Signed On 10-21-2017 11:42:11 CDT by Omer Gonsalves [email or web address] <ELECTRONICALLY SIGNED> By: Omer Gonsalves MD, [facility] 10/21/17 1142 6 0527 Omer Gonsalves MD, [facility] /EPI
[2017-10-21 12:05] VITALS: BP 109/77
[2017-10-21 12:30] VITALS: BP 121/91
[2017-10-21 16:00] VITALS: BP 148/109
[2017-10-21 16:08] LABS: HEPATITIS B SURFACE AG Negative (Negative)
--- NOTE | 2017-10-21 19:03 | NUR ---
RECEIVED REPORT AND ASSUMED CARE AT 1230. VSS. CARDIAC MONITORING IN PLACE. PT TRANSFERRED FROM ER TO RM 225. PT RECEIVED MEDICATIONS IN ER, AND IS SLEEPING. PT ANSWERING SOME Y/N QUESTIONS. MOSTLY SLEEPING AND NOT ABLE TO ANSWER. ASSESSMENT COMPLETED CHARTED. PT IS 1:1 FOR SUICIDAL IDEATION. PT HAS BEEN SLEEPY THROUGHOUT THE SHIFT. HOURLY ROUNDING COMPLETED. ALL NEEDS MET. WILL CONTINUE TO MONITOR FOR REMAINDER OF THE SHIFT
[2017-10-21 19:30] VITALS: BP 106/67
[2017-10-22 03:31] VITALS: BP 95/68
[2017-10-22 05:03] LABS: ABSOLUTE EOSINOPHILS 0.1 thou/uL (0.0-0.7); ABSOLUTE LYMPHOCYTES 1.7 thou/uL (0.8-5.3); ABSOLUTE MONOCYTES 0.6 thou/uL (0.0-1.2); ABSOLUTE NEUTROPHILS 3.9 thou/uL (1.6-8.1); BASOPHILS 0.7 %; EOSINOPHILS 1.3 %; HEMOGLOBIN 12.9 gm/dL (14.0-18.0); LYMPHOCYTES 26.7 %; MCH 30.1 pg (26.0-34.0); MCHC 33.1 g/dL (28.0-37.0); MCV 91.1 fL (80.0-100.0); MONOCYTES 9.2 %; MPV 8.1 fl. (7.2-11.1); NUCLEATED RBCS 0 /100WBC; PLATELET COUNT* 167 thou/uL (150-400); POLYS 62.1 %; RBC 4.28 mil/uL (4.50-6.00); RDW-CV 17.3 % (10.5-14.5); WBC 6.3 thou/uL (4.0-11.0)
[2017-10-22 05:14] LABS: CALCIUM 7.5 mg/dL (8.5-10.1); CREATININE 1.2 mg/dL (0.6-1.3); POTASSIUM 3.9 mmol/L (3.5-5.1)
--- NOTE | 2017-10-22 05:47 | NUR ---
END SHIFT: PT RESTED WELL AFTER ATIVAN- REQUIRED FOR RESTLESSNESS, HALLUCINATIONS, AND AGITATION TWICE OVER SHIFT. SR ON MONITOR. PAIN REPORTED IN BACK, TYLENOL GIVEN WITH GOOD RESULT. 1:1 SITTER IN ROOM FOR SAFETY. SAFETY PRECAUTIONS IN PLACE. CALL LIGHT IN REACH. WILL CONT TO MONITOR.
[2017-10-22 08:19] VITALS: BP 106/79
[2017-10-22 11:30] VITALS: BP 110/82
--- NOTE | 2017-10-22 14:52 | NUR ---
MET WITH PT AND SPOKE WITH PT'S MOTHER/ALEJANDRO AT THE NURSES STATION. PT DROWSY, STATES HE LIVES ALONE BUT PEOPLE COME 'IN AND OUT.' HE IS INDEPENDENT AND ACTIVE. PT IS , HAS ADULT DTR WHO PER ALEJANDRO IS IN REHAB IN [place]. ALEJANDRO VOICED CONCERN AND WROTE OUT AFFADAVIT YESTERDAY RE: PT'S VOICING SI. HE HAS PSYCH CONSULT AND PENDING MEDICAL CLEARANCE FOR INPT IF APPROPRIATE PER PSYCH. DISCUSSED POSSIBLE INPT PSYCH WITH PT, HE IS AGREEABLE. WOULD LIKE TO STAY CLOSE TO [place] [facility] POSSIBLE. EXPLAINED THAT WOULD TRY TO ACCOMODATE. WILL FOLLOW
--- NOTE | 2017-10-22 21:22 | NUR ---
CONTACTED [facility] [phone]; PROVIDED INFORMATION ON PT TO JASMIN, ON INVOLUNTARY COMMITMENT; FAXED PTS CHART, WITH AFFIDAVITS TO [phone]
[2017-10-23] VITALS: BP 100/64
[2017-10-23 04:00] VITALS: BP 124/88
--- NOTE | 2017-10-23 04:45 | NUR ---
END SHIFT: PT REMAINS RESTLESS AND AGITATED WITH HALLUCINATIONS AND YELLING/CRYING. PT DID REST INTERMIT WELL THROUGHOUT SHIFT AFTER IM MEDICATION. 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 C/O PAIN IN BACK BUT REFUSING MEDICATION OFFERED. PLANS TO D/C TO INPATIENT PSYC WHEN BED AVAILABLE. 1:1 IN ROOM FOR SAFETY. WILL CONT TO MONITOR.
--- NOTE | 2017-10-23 11:57 | NUR ---
CARLOS following up with inpt psych placement. CARLOS was informed by nursing that [facility] denied acceptance. CARLOS spoke with [facility] and they do not have any male beds available. CARLOS faxed [facility] and then called and the intake was unable to review at this time but said that there was a chance she could follow up later this afternoon. CARLOS called [facility] at [phone] and there is a possibility for acceptance and CARLOS faxed referral to [phone]. Pt mom wondered about [facility] since pt is a , CARLOS called [facility] at [phone] and was told that there was a chance pt could be transferred to the [facility] ER and that the Doctors would need to talk with each other. SW to discuss with Dr Solo and CARLOS to continue to follow to assist with inpt psych placement.
[2017-10-23 16:00] VITALS: BP 144/103
--- NOTE | 2017-10-23 18:26 | NUR ---
RECEIVED REPORT AND ASSUMED CARE AT 0700. PT REFUSING TO HAVE VITALS TAKEN. REFUSING TO WEAR CARDIAC MONITORING. PT THROWING MONITOR LEADS IN ROOM. PT MAKING HOSTILE STATEMENTS ABOUT FIGHT OR PUNCHING PEOPLE IF HE IS TAKEN TO INPATIENT PSYCH. PT CLAIMS HE IS GOING TO LEAVE THE HOSPITAL. PT REFUSING ALL CARE AND MEDICATIONS. HOURLY ROUNDING COMPLETED, ALL NEEDS MET. 1:1 SITTER MAINTAINED. PT WANTED TO TAKE A SHOWER THIS AFTERNOON, THEN AGREED TO HAVE HIS VITALS TAKEN, BP SLIGHTLY ELEVATED. PT REQUESTED TO HAVE HIS MEDICATION AND PRN FOR AGITATION. IV STARTED. MEDICATIONS ADMINISTERED. PT UPSET ABOUT STAYING IN HOSPITAL, REMOVED CARDIAC MONITORING AND THREW LEAD ACROSS ROOM. NURSIMG WILL CONTINUE TO MONITOR
[2017-10-24 00:48] VITALS: BP 130/96
--- NOTE | 2017-10-24 05:36 | NUR ---
PT ANXIOUS AND IRRATATED. PT REFUSES TO KEEP TELE MONITOR ON. PT DISCONTUNED IV AND REFUSES TO KEEP IV IN. PT REFUSES NURSES ASSESSMENT. ARPOX 2200 PT REPORTED CHEST PAIN. EKG DONE, MEDICATION GIVEN AND SYMPTOMS RESOLVED. RA. STAND BY ASSIST. DENIED SI. SITTER IN ROOM. SI PRECAUTIONS IN PLACE. FALL PRECAUTIONS IN PLACE. VITALS WNL. SEE MAR. SEE CHARTING. HOURLY ROUNDING FOR SAFETY.
[2017-10-24 08:00] VITALS: BP 131/92
--- NOTE | 2017-10-24 08:00 | NUR ---
AM ASSESSEMENT COMPLETE, DEFER TO COMPUTER CHARTING. FIBERGLASS DOWEL DRAWING OPERATOR TRACKING SR. ALERT ORIENTED - ANXIOUS, IRRITABLE, FUSSY THIS AM. BUT, PATIENT COOPERATIVE AND LET NURSING PUT FIBERGLASS DOWEL DRAWING OPERATOR BACK ON AND LETTING NURSE COMPLETE AM ASSESSMENT. DENIES FEELING OF HURTING SELF OR OTHERS AT THIS TIME. PATIENT DOES REPORT HAVING HALLUCINATIONS AND HEARING VOICES EARLIER IN AM - CONTINUES TO STATE THEY ARE GONE AND THAT HE CAN TELL THE DIFFERENCE BETWEEN WHAT IS REAL OR NOT. SALINE LOCK REMAINS OUT PATIENT REFUSING TO LET NURSING REPLACE. DENIES CHEST PAIN, DIZZINESS OR SOA AT THIS TIME. 1:1 SITTER REMAINS AT BEDSIDE FOR SAFETY. WILL MONITOR.
--- NOTE | 2017-10-24 11:00 | NUR ---
PATIENT PULLING OFF FOREST FIRE PREVENTION SPECIALIST - REFUSING TO WEAR AT THIS TIME. AGGITATED, WANTING TO LEAVE. REVIEWED PLAN CARE AND GIVEN RESSURANCE NUMBEROUS TIMES. PATINET WANTING TO SEE COPY OF AFFIDAVIT FROM CHART, STATING HE HAS RIGHT TO SEE, CONTINUES TO STATE IF HE DOES NOT GET TO LEAVE TODAY BY 1400 - HE IS GOING TO PULL TV OFF WALL AND START BREAKING THINGS IN ROOM. CALL PLACED TO HARDSCAPE FOREMAN NOTIFIED OF PATIENT REQUEST. PATIENT HITTING SIDE TABLE, BANGING ON TABLE AND USING INAPPROPIATE LANGUAGE. 1:1 SITTER REAMINS IN ROOM FOR SAFETY. WILL MONITOR.
--- NOTE | 2017-10-24 11:50 | NUR ---
CALL PLACED TO TELE MED PSYCH PER PATIENT REQUEST, AWAITING CALL BACK AT THIS TIME.
--- NOTE | 2017-10-24 13:02 | NUR ---
TELE MED PSYCH DOCTOR ON MONITOR VISITING WITH PATIENT AT THIS TIME.
--- NOTE | 2017-10-24 13:20 | NUR ---
PATIENT YELLING AND CUSSING AT DOCTOR ON MED TELE PSCHY MONITOR - ATTEMPTING TO HIT MONITOR AND SHOVE OUT OF ROOM. PATIENT LATER STATING TO LAND LEASING INFORMATION CLERK NOW IM REALLY GOING TO KILL MYSELF.
[2017-10-24 14:00] VITALS: BP 114/89
--- NOTE | 2017-10-24 14:16 | NUR ---
PATIENT REPORTING HAVING CHEST DISCOMFORT - AGREES TO LET NURSING PUT RAIL DETECTOR CAR OPERATOR BACK ON AND EKG OBTAINED. PATIENT REQUESTING PAIN MEDICATION TO ASSIST WITH CHEST PAIN. CALL PLACED TO DR LIM TO NOTIFY.
--- NOTE | 2017-10-24 14:31 | EKG ---
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: MUSA : 1965 Requested By: Russ Solo Order Number: [id number] Reading MD: Chris Noel Measurements Intervals [place] Rate: 76 P: 69 HI: 205 QRS: 28 QRSD: 123 T: -26 QT: 442 QTc: 498 Interpretive Statements Sinus rhythm rolonged HI interval Left atrial enlargement, possible Nonspecific T abnormalities, lateral leads Compared to ECG 10/21/2017 05:27:06 Atrial abnormality now present Left ventricular hypertrophy no longer present T-wave abnormality still present Electronically Signed On 10-24-2017 14:31:44 CDT by Chris Noel [email or web address] <ELECTRONICALLY SIGNED> By: Chris Noel MD, [facility] 10/24/17 1431 02 02 Chris Noel MD, [facility] /EPI
--- NOTE | 2017-10-24 14:38 | NUR ---
PATIENT PULLED CARDIAC OFF - MOTHER IN VISITING - MOTHER THEN COMING TO DESK TEARY STATING SON SAID HE LOVED DEARLY THEN SAID GO GET HIM PIZZA THEN STAY OUT OF HIS LIFE.
--- NOTE | 2017-10-24 17:30 | NUR ---
PATIENT TO CT EARLIER - RESULTS GIVEN TO DR LIM, NEW ORDERS RECEIVED. SALINE LOCK STARTED IN LFA AND SKATING RINK MANAGER PLACED BACK ON. PATIENT AGREED TO LEAVE SKATING RINK MANAGER AND SALINE LOCK IN PLACE. DR LIM INTO SEE PATIENT AND DISCUSSED RESULTS OF CT WITH PATIENT. PATIENT TEARY, REASSURANCE GIVEN - REVIEWED PLAN OF CARE. WILL CONTINUE TO MONITOR. 1:1 SITTER REMAINS AT BEDSIDE FOR SAFETY.
--- NOTE | 2017-10-24 17:53 | NUR ---
NO CHANGE IN CONDITION AT THIS TIME. FLIGHT CREW TIME CLERK TRACKING SR. 1:1 SITTER REMAINS AT BEDSIDE. WILL CONTINUE WITH PLAN OF CARE.
[2017-10-24 20:00] VITALS: BP 127/63
--- NOTE | 2017-10-24 20:00 | NUR ---
RECEIVED REPORT AND ASSUMED CARE OF PT, ASSESSMENT COMPLETED. PT PLEASANT AND COOPERATIVE AT THIS TIME. SITTER AT BEDSIDE. O2 ON BUT PT REMOVING IT OCC FOR COMFORT. TELEMETRY ON SHOWING SR. WILL CONT TO MONITOR AND ASSIST NEEDED.
[2017-10-25] VITALS: BP 110/81
[2017-10-25 03:37] VITALS: BP 125/86
[2017-10-25 05:22] LABS: HEMATOCRIT 43.9 % (42.0-52.0); HEMOGLOBIN 14.3 gm/dL (14.0-18.0); MCHC 32.6 g/dL (28.0-37.0); MCV 91.9 fL (80.0-100.0); MPV 8.7 fl. (7.2-11.1); RBC 4.78 mil/uL (4.50-6.00); WBC 7.6 thou/uL (4.0-11.0)
[2017-10-25 05:33] LABS: CALCIUM 8.2 mg/dL (8.5-10.1); CREATININE 1.4 mg/dL (0.6-1.3); MAGNESIUM 1.7 mg/dL (1.8-2.4); POTASSIUM 4.5 mmol/L (3.5-5.1)
--- NOTE | 2017-10-25 05:51 | NUR ---
AWAKE MOST OF NIGHT TALKING WITH SITTER. REPEATED ASKS "YOU KNOW WHERE I AM GOING, THE NUT SEN AND IT'S NOT GOING TO WORK". REMAINS CALM AND COOPERATIVE. ALLOWED LABS TO BE DRAWN AND VS TAKEN. SITTER REMAINS AT BEDSIDE. TELEMETRY CONT TO SHOW SR. NO CHANGE IN ASSESSMENT. ACHIEVED HS GOALS OF REST AND SAFETY. HOURLY ROUNDING MADE ALONG WITH 1:1 OBSERVATION.
[2017-10-25 09:30] VITALS: BP 127/92
--- NOTE | 2017-10-25 09:40 | NUR ---
SPOKE WITH [facility] [phone] [id number]. PER [facility], THEY DO HAVE ABILITY TO ACCEPT PTS ON WEEKENDS. STATED THERE WERE NO NOTES ON THE CASE, UNSURE WHO DR CONCEPCION SPOKE WITH OVER THE WEEKEND. INFO GIVEN TO [facility] TODAY. SHE STATED THAT PT WOULD NOT HAVE AUTOMATIC COVERAGE FOR [facility] NOT SERVICE CONNECTED, BUT IF ACCEPTED, COULD BE REVIEWED UNDER MILL BILL AFTER DC FOR COVERAGE, TRANSPORTATION TO [facility] WOULD NOT BE COVERED AT ALL. SHE ALSO STATED THAT THEY DO NOT HAVE ANY BED AVAILABILITY TODAY BUT CM COULD CHECK BACK LATER. DISCUSSED WITH NURSE. PT SLEEPING AT THIS TIME, HAS SITTER. HAS SCHEDULED THORACENTESIS TODAY, WILL DISCUSS FURTHER WITH DR HERNANDEZ RE: MEDICAL CLEARANCE AND READINESS FOR DC.
[2017-10-25 10:22] LABS: ALBUMIN 2.6 g/dL (3.4-5.0); CREATININE 1.4 mg/dL (0.6-1.3); TOTAL BILIRUBIN 1.8 mg/dL (<0.1-1.0); TOTAL PROTEIN 5.9 g/dL (6.4-8.2)
--- NOTE | 2017-10-25 11:19 | EKG ---
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 : 1965 Requested By: Shakeel Jerome Order Number: [id number] Reading MD: Bharathi Amanda Measurements Intervals [place] Rate: 66 P: 77 MA: 210 QRS: 25 QRSD: 112 T: -44 QT: 495 QTc: 519 Interpretive Statements Sinus rhythm Prolonged MA interval Probable left ventricular hypertrophy Nonspecific T abnormalities, lateral leads Prolonged QT interval Compared to ECG 10/23/2017 22:03:53 First degree AV block now present Prolonged QT interval now present T-wave abnormality still present Electronically Signed On 10-25-2017 11:19:28 CDT by Bharathi Amanda [email or web address] <ELECTRONICALLY SIGNED> By: Bharathi Amanda MD, [facility] 10/25/17 1119 1408 1408 Bharathi Amanda MD, [facility] /EPI
[2017-10-25 12:00] VITALS: BP 119/86
--- NOTE | 2017-10-25 12:35 | 2DMMODE ---
[place] [address] 2 D/M-MODE ECHOCARDIOGRAM Name: POP FABIANMELBA Room: 229-P [facility] IN .R.#: [id number] Admission: 10/21/17 Attend Phys: Shakeel Jerome, Discharge: Date of : 69 Date of Service: 10/25/17 1235 Report #: [id number] THIS REPORT FOR: //name// APPROVED REPORT Study performed: 10/25/2017 11:31:55 EXAM: Comprehensive 2D, Doppler, and color-flow Echocardiogram Patient Location: In-Patient Room #: 229 BSA: 1.88 HR: 72 bpm BP: 125/86 mmHg Other Information Study Quality: Excellent Indications Congestive Heart Failure 2D Dimensions LVEF(%): 10.29 (>50%) IVSd: 12.37 (7-11mm) LVOT Diam: 21.22 (18-24mm) LVDd: 67.28 mm PWd: 10.65 (7-11mm) Ascending Ao: 28.91 (22-36mm) LVDs: 64.13 (25-40mm) Aortic Root: 32.87 mm Jordan's LVEF: 10.29 % Volumes Left Atrial Volume (Systole) LA ESV Index: 32.70 mL/m2 Aortic Valve AoV Peak Kulwinder.: 0.73 m/s AO Peak Gr.: 2.15 mmHg LVOT Max P.06 mmHg AO Mean Gr.: 1.11 mmHg LVOT Mean P.52 mmHg LVOT Max V: 0.51 m/s AO V2 VTI: 12.58 cm LVOT Mean V: 0.33 m/s EZEQUIEL (VTI): 1.87 cm2 LVOT V1 VTI: 6.65 cm Mitral Valve E/A Ratio: 2.00 MV Decel. Time: 176.12 [place] [address] 2 D/M-MODE ECHOCARDIOGRAM Name: POP FABIAN Room: [address] IN M.R.#: [id number] Admission: 10/21/17 Attend Phys: Shakeel Jerome, Discharge: Date of : [birth year] Date of Service: 10/25/17 1235 Report #: [id number] MV E Max Kulwinder.: 0.59 m/s MV PHT: 51.07 ms MVA (PHT): 4.31 cm2 TDI E/Lateral E': 11.80 E/Medial E': 14.75 Medial E' Kulwinder.: 0.04 m/s Lateral E' Kulwinder.: 0.05 m/s Pulmonary Valve PV Peak Kulwinder.: 0.56 m/s PV Peak Gr.: 1.26 mmHg Tricuspid Valve TR Peak Gr.: 20.52 mmHg RVSP: 25.52 mmHg Left Ventricle Left ventricle is moderately dilated. There is global hypokinesis of the left ventricle. There is normal left ventricular wall thickness. Left ventricular systolic function is severely decreased. LVEF is 10-15%. The left ventricular diastolic function is normal. Right Ventricle The right ventricle is normal size. Right ventricle is mildly hypokinetic. Atria Left atrium is moderately dilated. Right atrium is dilated. Aortic Valve The aortic valve is normal in structure. No aortic regurgitation is present. There is no aortic valvular stenosis. Mitral Valve The mitral valve is normal in structure. Mild mitral regurgitation. No evidence of mitral valve stenosis. Tricuspid Valve The tricuspid valve is normal in structure. Moderate tricuspid regurgitation. pa pressure 40 mm Hg Pulmonic Valve The pulmonary valve is normal in structure. Trace pulmonic regurgitation. Great Vessels The aortic root is normal in size. IVC [place] [address] 2 D/M-MODE ECHOCARDIOGRAM Name: POP FABIAN Room: [address] IN .R.#: [id number] Admission: 10/21/17 Attend Phys: Shakeel Jerome, Discharge: Date of : 69 Date of Service: 10/25/17 1235 Report #: [id number] collapses with >50% inspiration Pericardium There is no pericardial effusion. <Conclusion> LVEF is 10-15%. Left atrium is moderately dilated. Right atrium is dilated. Mild mitral regurgitation. Moderate tricuspid regurgitation. pa pressure 40 mm Hg <ELECTRONICALLY SIGNED> By: Bharathi Amanda MD, [facility] 10/25/17 1235 1235 1235 Bharathi Amanda MD, [facility] /INF
--- NOTE | 2017-10-25 13:53 | NUR ---
CONTINUE TO FOLLOW, DISCUSSED WITH DR HERNANDEZ AND MET WITH PT. RECOMMENDATION IS STILL FOR INPT PSYCH AND PT STATES HE WILL BE VOLUNTARY. NOT HAPPY ABOUT IT, BUT WILL BE COMLAINT. CALLS TO [facility], THEY ARE FULL. CALL TO [facility]/ESTELA WILSON, [facility] AND [facility], ALL WILL ACCEPT REFERRAL TO REVIEW. FAXED TO ALL 3 FACILITIES, AWAIT CALLS BACK
[2017-10-25 16:00] VITALS: BP 123/74
--- NOTE | 2017-10-25 16:23 | NUR ---
MULTIPLE CALLS TO INPT PSYCH UNITS TO TRY TO FIND PLACEMENT FOR PT. [facility]-FULL [facility]-FULL [facility]-FULL AND ALSO FELT PT'S AFFADAVITS WERE NOT 'VALID' [facility]-FULL. REF:FAXED BUT NO RETURN CALL [facility]-REF: FAXED, NO RETURN CALL YET NOT SURE THEY COULD TAKE [facility] [place]-DON'T TAKE PTS UNDER 55 [place]-FULL SUGGESTED CALL BACK TOMORROW [facility]-FULL ASKED CM TO CALL BACK, CALLED AT 1515, LEFT MESSAGE [facility] AND [facility]-DECLINED PT. TOO HIGH [facility]- ADULT UNIT NOT OPEN YET [facility] [place]-FULL [facility] [place]-FULL [facility]-FULL ASKED CM TO CALL BACK [facility]OMORROW [facility] ASKED CM TO CALL BACK TOMORROW [facility] [place] AND PTS IN ER WAITING [facility] IN [place]- LEFT MESSAGE [phone] [facility] PSYCH IN [place]- LEFT MESSAGE [phone] [facility] IN [facility]- FULL [facility]- USUALLY ONLY TAKE 54+ BUT DID ASK CM TO FAX-DONE [facility] [phone] [facility] IN [facility] PSYCH 60+ AWAIT CALLS BACK FROM [facility], [place], [facility] AND [facility] UPDATED SUP AND 2E
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
--- NOTE | 2017-10-25 18:00 | NUR ---
ASSUMED PT CARE AT 0700 PT IS ALERT AND ORIENTED X 4 PT C/O PAIN PT HAD A 12 HOUR FENTANYL ORDER THAT NOTIFIED PT WHO WAS UPSET REFUSED MEDICATIONS UNTIL PAIN MED ISSUE WAS RESOLVED, CALLED PHYSICIAN OBTAINED ORDER FOR FENTAYL GAVE PT A DOSE PT TOOK SCHEDULED MEDICATIONS, PT CONSENTED FOR PROCEDURE WENT DOWN FOR THORACENTISIS CAME BACK BANDAGE INTACT, PT C/O PAIN GAVE PAIN MEDS PT MOM WITH PT, REASSESSED PT STATES PAIN MEDS WORK, PHYSICIAN ROUNDED ON PT ORDERED PO PAIN MEDS, PT DENIES SOA ON RA, PT HAD SHOWER SITTER WITH PT, PT IS SR ON THE MONITOR, TALKED WITH CASE MANAGEMENT WHO IS UNABLE TO FIND PLACEMENT FOR PT, PT UP WITH SBA PT IS NOT A FALL RISK, PT HAS STEADY GAIT, WILL CONTINUE TO MONITOR
[2017-10-25 20:00] VITALS: BP 122/77; BP 123/85
[2017-10-26] VITALS: BP 95/50
--- NOTE | 2017-10-26 02:23 | NUR ---
ASSUMED CARE OF PATIENT AT 1900. VSS, AFEBRILE. REQUESTS NICOTINE GUM AND PAIN MEDS EVERY FEW HOURS. STATES HE CAN'T GET AN RX FOR PAIN MEDS OUTSIDE OF HOSPITAL SO HE'S GOING TO TAKE WHAT HE CAN. PAIN IS IN CHEST, NON CARDIAC. SITTER AT BEDSIDE. PATIENT DENIES SUICIDAL IDEATION OR THOUGHTS OF HARMING HIMSELF. KNOWS HE IS WAITING FOR PYSCHIATRIC PLACEMENT. REMAINS CALM AND COOPERATIVE. PROGRESSING SLOWLY TOWARDS POC GOALS.
[2017-10-26 04:09] VITALS: BP 106/75
[2017-10-26 09:30] VITALS: BP 137/94
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
[2017-10-26 11:41] VITALS: BP 120/79
--- NOTE | 2017-10-26 11:54 | NUR ---
ORDER RECEIVED FOR UPDATED PSYCH CONSULT. MET WITH PT AND UPDATED MOM/ALEJANDRO. PT STATES HE IS NOT HAVING THOUGHTS OF HURTING HIMSELF TODAY, THAT HE IS INTERESTED IN GETTING ON A HEART TRANSPLANT LIST AND LIVING. THAT HE'S DRUMMER AND WANTS TO GET BETTER. ADMITS TO NOT TAKING HIS MEDS IT INTERFERS WITH HIS 'GROOVE.' PT ABLE TO VERBALIZE THAT HE NEEDS TO TAKE THEM HOWEVER. HE SEEMED PLEASED THAT HIS EF% HAD INCREASED RECENTLY. PT INTERESTED IN GOING TO [facility] TO HAVE APPT RE: TRANSPLANT. AWAIT UPDATED PSYCH EVAL
--- NOTE | 2017-10-26 14:08 | NUR ---
ASSUMED PT CARE AT 0700 PT IS ALERT AND ORIENTED X 4 PT C/O PAIN IN BACK WHERE PROCEDURE WAS DONE YESTERDAY OFFERED PO PAIN MEDS WAS APPRORIATE PT WAS CALM SHOWED NO SIGNS OF PAIN PT WAS AGITATED STATED " I AM INTILTLED TO THE PAIN SHOT" PT WAS ASKING FOR IV FENTANYL THIS NURSE EDUCATED PT ON THE IMPORTANCE OF FINDING A PO PAIN MEDICATION THAT RELIEVES HIS PAIN TO GO HOME ON THAT IV FENTAYL IS NOT A MEDICATION THAT IS FOR HOME USE, PT STATES " I AM NOT LEAVING TODAY I AM GOING TO THE NUT HOUSE AND THEN I WILL BE INCARERATED" THIS NURSE REEDUCATED THAT PO PAIN MEDS STAY ACTIVE IN THE SYSTEM LONGER THAN IV PAIN MEDS HE STATES" SO BASICALLY YOU ARE NOT GOING TO GIVE ME THE FENTANYL THAT I AM INTILTLED TO LET ME SPEAK WITH YOUR ABSTRACT SEARCHER" I EDUCATED PT THAT THE ANSWER WOULD BE THE SAME THAT PO PAIN MEDS NEEDED TO BE GIVEN FIRST PER PHYSCIAN ORDER PT STATED HE WOULD NOT TAKE PAIN MEDS AT HOME STATES " I HAVE BEEN TAKING DRUGS FOR YEARS THAT DOSE OF OXY IR WON'T HELP I WILL JUST SUFFER" PT WAS REFERRING TO ILLEGAL DRUGS HE HAS TAKEN PREVIOUSLY, PT REFUSED PAIN MEDS THIS NURSE NOTIFIED CHARGE NURSE WHO SPOKE WITH PT, PT WILLING TO TAKE PO PAIN MEDS THIS NURSE GAVE DOSE REASSESSED PT WHO DENIES PAIN, PT HAS BEEN CALM DENIES ATTEMPTING TO KILL SELF PT STATES " I WANT TO LIVE I WANT TO BE PUT ON THE TRANSPLANT LIST" CASE MANAGEMENT IS SEEING PT [facility] FOR ANOTHER [facility] EVAULUATION, THIS NURSE THROUGH TELEPHSYC OBTAINED PHS[facility] EVAULUATION PT WAS CALM DURING EVAUL DID NOT SHOW ANY SIGNS OF AGGRESSIVNESS OR ANGER THIS NURSE SITTER AND SECURITY IN ROOM, [facility] DOES NOT QUALIFY FOR INPATIENT PHYSC PLACEMENT RECOMMENDS F/U WITH PHYSCIATRIST, CASE MANAGEMENT SPOKE WITH HOSPITALIST WHO CLEARED PT FOR DISCHARGE, PT IS SR ON THE MONITOR, WILL CONTINUE TO MONITOR
[2017-10-26] MEDS ORDERED: COLACE100 MG PO (14:41)
[2017-10-26] MEDS ORDERED: TYLENOL325 MG PO (14:42)
[2017-10-26] MEDS ORDERED: ONDANSETRON HCL4 M2 PO (14:43)
[2017-10-26] MEDS ORDERED: OXYCODONE HCL 55 MG PO (14:43)
[2017-10-26] MEDS ORDERED: IBUPROFEN 800800 M1 PO (15:59)
[2017-10-26 17:35] LABS: BF RBC 4199 /mm3; TOTAL CELL COUNT 357 /mm3
[2017-10-26 18:03] LABS: CLARITY SLIGHTLY HAZY; COLOR AMBER; TOTAL VOLUME 1560 ml
[2017-10-26 18:07] LABS: BF LYMPHOCYTES 79 %; BF POLYS 19 %; BF TISSUE 123 /100 WBC; BODY FLUID BANDS 2 %
[2017-10-26 18:09] LABS: SOURCE THORACENTESIS
[2017-10-27 15:10] LABS: BODY FLUID AMYLASE 10 U/L (()); BODY FLUID LDH 120 IU/L (()); BODY FLUID PROTEIN 1.7 g/dL (())
[2017-10-27 16:11] LABS: BODY FLUID PH 7.8 (Not Estab.)
[2017-10-28 19:52] LABS: SOURCE THORACENTESIS
--- NOTE | 2018-03-18 07:06 | PATH ---
[address] [address] PATHOLOGY RPT PROCEDURE Name: POP FABIAN Room: [address] IN M.R.#: [id number] Admission: 10/21/17 Date of : 69 Discharge: 10/26/17 Report #: [id number] Path Case #: [id number] Note [facility] Accession Number: [id number] TESTS RESULT FLAG UNITS REF RANGE LAB Clinician Provided Cytology Information No. of containers..01 Other (Miscellaneous) Source: RT PLEURAL FLUID DIAGNOSIS: RT PLEURAL FLUID INCONCLUSIVE. MESOTHELIAL CELLS ARE PRESENT. SEE COMMENT. Comment: Immunohistochemical stains are performed (Block A1; appropriately reactive controls) and reveal the following Calretinin: Positive amongst mesothelial cells WT-1: Positive amongst mesothelial cells Kevin-EP4: Negative The immunostains highlight mesothelial cells with focal atypia. The atypical mesothelial cells are favored to be reactive in nature. Negative for carcinoma. Correlation is recommended. Signed out by: 02 Chris Baptiste MD, Pathologist NPI- [id number] Performed by: 03 Ilda Quintana, Welding Equipment Repairer ([facility]) Gross description: 01 50ML, ORANGE, CLOUDY /LCS FLAG LEGEND: L-Low Normal,H-High Normal,LL-Alert Low,HH-Alert High <-Panic Low,>-Panic High,A-Abnormal,AA-Critical Abnormal Performed at: 01 [facility] [address] [facility] [address] [place] [address] David Wilson MD, [address] [address] Dee Pickens MD, 03 [facility] [place] [id number] [address] Anthony Villar MD, Specimen Comment: A duplicate report has been generated due to demographic [address] [address] PATHOLOGY RPT PROCEDURE Name: POP FABIAN Room: [address] DIS IN M.R.#: [id number] Admission: 10/21/17 Date of : 69 Discharge: 10/26/17 Report #: [id number] Path Case #: [id number] updates. Performed at: 01 [facility] [address] [place] [address] [address], Emre Champagne, [place] [id number] MD David Wilson MD Phone: [phone]
== END 2017-10-26 16:09 | disposition home or self-care (01) | DRG 292 ==
LOC: M.ERS 05:00 → M.TBA-ER 06:16 → M.2W 06:16
PROVIDERS: Emergency Medicine; Family Medicine; Internal Medicine; Internal Medicine Cardiovascular Disease; ADMIT Internal Medicine
PROC: 0W993ZX Drainage of Right Pleural Cavity, Percutaneous Approach, Diagnostic (ICD-10-PCS; principal; 2017-10-25)
DX: I13.0 Hypertensive heart and chronic kidney disease with heart failure and stage 1 through stage 4 chronic kidney disease, or unspecified chronic kidney disease (principal); J90 Pleural effusion, not elsewhere classified; R07.89 Other chest pain; N18.9 Chronic kidney disease, unspecified; F23 Brief psychotic disorder; R45.851 Suicidal ideations; I42.9 Cardiomyopathy, unspecified; F15.20 Other stimulant dependence, uncomplicated; F32.9 Major depressive disorder, single episode, unspecified; F12.10 Cannabis abuse, uncomplicated; F19.10 Other psychoactive substance abuse, uncomplicated; Z79.899 Other long term (current) drug therapy; Z87.891 Personal history of nicotine dependence; Z82.49 Family history of ischemic heart disease and other diseases of the circulatory system

== ENCOUNTER 2018-01-11 13:20 | Emergency (ER) | payer MEDICAID ==
[~2018-01-11] VITALS: Ht 185.4 cm; Wt 83.6 kg
[~2018-01-11 13:20] MED LIST changes: +COLACE100 MG PO; +IBUPROFEN 800800 M1 PO; +ONDANSETRON HCL4 M2 PO; +OXYCODONE HCL 55 MG PO; +TYLENOL325 MG PO
[2018-01-11] MEDS ORDERED: COREG6.25 MG PO (13:27)
[2018-01-11 13:48] LABS: ABSOLUTE BASOPHILS 0.1 thou/uL (0.0-0.2); ABSOLUTE EOSINOPHILS 0.1 thou/uL (0.0-0.7); ABSOLUTE LYMPHOCYTES 1.6 thou/uL (0.8-5.3); ABSOLUTE MONOCYTES 0.4 thou/uL (0.0-1.2); ABSOLUTE NEUTROPHILS 4.3 thou/uL (1.6-8.1); BASOPHILS 0.9 %; EOSINOPHILS 0.9 %; HEMATOCRIT 42.5 % (42.0-52.0); LYMPHOCYTES 25.1 %; MCH 31.1 pg (26.0-34.0); MCHC 32.9 g/dL (28.0-37.0); MCV 94.7 fL (80.0-100.0); MONOCYTES 5.6 %; MPV 8.7 fl. (7.2-11.1); NUCLEATED RBCS 0 /100WBC; PLATELET COUNT* 170 thou/uL (150-400); POLYS 67.5 %; RBC 4.49 mil/uL (4.50-6.00); RDW-CV 16.8 % (10.5-14.5); WBC 6.4 thou/uL (4.0-11.0)
[2018-01-11 13:53] LABS: ANION GAP 4 mmol/L (7-16); BUN 19 mg/dL (7-18); CHLORIDE 105 mmol/L (98-107); CO2 29 mmol/L (21-32); GLUCOSE 133 mg/dL (70-99); POTASSIUM 4.1 mmol/L (3.5-5.1); SODIUM 138 mmol/L (136-145)
[2018-01-11 13:55] LABS: INR 1.2; PROTIME 11.3 Seconds (9.20-11.50)
[2018-01-11 14:03] LABS: ALBUMIN 3.2 g/dL (3.4-5.0); ALKALINE PHOSPHATASE 74 U/L (46-116); LIPASE 67 U/L (73-393); NT-PRO BRAIN NAT PEPTIDE 20438 pg/mL (<300); SGOT 29 U/L (15-37); SGPT 35 U/L (30-65); TOTAL PROTEIN 6.8 g/dL (6.4-8.2); TROPONIN-I LEVEL <0.06 ng/mL (<0.06)
[2018-01-11 14:44] LABS: URINE BILIRUBIN NEGATIVE (Negative); URINE BLOOD NEGATIVE (Negative); URINE CLARITY CLEAR; URINE COLOR YELLOW; URINE GLUCOSE-RANDOM NEGATIVE (Negative); URINE KETONES NEGATIVE (Negative); URINE LEUKOCYTES-REFLEX NEGATIVE (Negative); URINE NITRITE-REFLEX NEGATIVE (Negative); URINE PROTEIN NEGATIVE (Negative); URINE UROBILINOGEN 0.2 E.U./dl (0.2-1.0)
--- NOTE | 2018-01-11 14:56 | EKG ---
[place] [address] ELECTROCARDIOGRAM REPORT Name: POP FABIANMELBA Room: [facility]#: [id number] Admission: 01/11/18 Attend Phys: Discharge: Date of : 69 Report #: [id number] THIS REPORT FOR: //name// 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 01/11/18 1455 1324 1324 Chris Noel MD, FACC /EPI
[2018-01-11 15:20] VITALS: BP 136/96
== END 2018-01-11 15:22 | disposition home or self-care (01) ==
LOC: M.ERS 13:20
PROVIDERS: Emergency Medicine
DX: I11.0 Hypertensive heart disease with heart failure (principal); I50.9 Heart failure, unspecified; R60.0 Localized edema; F31.9 Bipolar disorder, unspecified; F17.210 Nicotine dependence, cigarettes, uncomplicated; Z98.890 Other specified postprocedural states

== ENCOUNTER 2018-01-27 01:58 | Inpatient (IN) | payer MEDICAID ==
[~2018-01-27] VITALS: Ht 185.4 cm; Wt 79.4 kg
[~2018-01-27 01:58] MED LIST changes: +COREG6.25 MG PO
[2018-01-27 02:07] VITALS: BP 128/97
[2018-01-27 02:18] LABS: ABSOLUTE BASOPHILS 0.1 thou/uL (0.0-0.2); ABSOLUTE EOSINOPHILS 0.1 thou/uL (0.0-0.7); ABSOLUTE LYMPHOCYTES 2.4 thou/uL (0.8-5.3); ABSOLUTE MONOCYTES 0.5 thou/uL (0.0-1.2); ABSOLUTE NEUTROPHILS 6.2 thou/uL (1.6-8.1); BASOPHILS 1.2 %; EOSINOPHILS 0.8 %; HEMATOCRIT 46.8 % (42.0-52.0); HEMOGLOBIN 15.2 gm/dL (14.0-18.0); MCH 31.2 pg (26.0-34.0); MCHC 32.4 g/dL (28.0-37.0); MCV 96.3 fL (80.0-100.0); MONOCYTES 5.8 %; MPV 8.8 fl. (7.2-11.1); NUCLEATED RBCS 0 /100WBC; PLATELET COUNT* 236 thou/uL (150-400); POLYS 66.2 %; RBC 4.86 mil/uL (4.50-6.00); RDW-CV 16.7 % (10.5-14.5); WBC 9.3 thou/uL (4.0-11.0)
[2018-01-27 02:27] LABS: CREATININE 1.3 mg/dL (0.6-1.3)
[2018-01-27 02:37] LABS: ALBUMIN 3.3 g/dL (3.4-5.0); TOTAL BILIRUBIN 1.3 mg/dL (<0.1-1.0); TOTAL PROTEIN 7.5 g/dL (6.4-8.2); TROPONIN-I LEVEL 0.49 ng/mL (<0.06)
[2018-01-27 04:00] VITALS: BP 137/95
[2018-01-27 04:04] LABS: AMP/METHAMP POSITIVE (Negative); BARBITURATES Negative (Negative); BENZODIAZEPINES Negative (Negative); COCAINE Negative (Negative); METHADONE Negative (Negative); OPIATES POSITIVE (Negative); PCP Negative (Negative); THC POSITIVE (Negative)
[2018-01-27 11:59] VITALS: BP 137/95
[2018-01-27 12:00] VITALS: BP 138/101
--- NOTE | 2018-01-27 15:27 | 2DMMODE ---
[place] [address] 2 D/M-MODE ECHOCARDIOGRAM Name: CARENPOP CORTEZ Room: 213-P [facility] IN [facility]#: [id number] Admission: 01/27/18 Attend Phys: Shakeel Jerome, Discharge: Date of : 69 Date of Service: 01/27/18 1527 Report #: [id number] THIS REPORT FOR: //name// ADDENDUM APPROVED REPORT Study performed: 01/27/2018 14:11:38 EXAM: Limited 2D Echocardiogram Patient Location: In-Patient Room #: 213 Status: routine BSA: 2.03 BP: 138/101 mmHg Rhythm: NSR Other Information Study Quality: Good Indications Congestive Heart Failure Cardiomyopathy Chest Pain 2D Dimensions IVSd: 11.95 (7-11mm) LVDd: 71.27 mm PWd: 12.04 (7-11mm) LVDs: 66.16 (25-40mm) Tricuspid Valve RAP Estimate: 15.00 mmHg TR Peak Gr.: 34.71 mmHg RVSP: 49.71 mmHg PA Pressure: 49.71 mmHg Left Ventricle Left ventricle is moderately dilated. There is severe global hypokinesis. Mild concentric left ventricular hypertrophy. Left ventricular systolic function is severely decreased. LVEF is 15-20%. This study is not technically sufficient to allow evaluation of the LV diastolic function. Right Ventricle Right ventricle is mildly dilated. Right ventricle [place] [address] 2 D/M-MODE ECHOCARDIOGRAM Name: POP FABIANMELBA Room: [address] IN M.R.#: [id number] Admission: 01/27/18 Attend Phys: Shakeel Jerome, Discharge: Date of : 69 Date of Service: 01/27/18 1527 Report #: [id number] Atria Left atrium is moderately dilated. Right atrium is moderately dilated. Aortic Valve The aortic valve is normal in structure. No aortic regurgitation is present. Mitral Valve The mitral valve is normal in structure. Mild mitral regurgitation. Tricuspid Valve The tricuspid valve is normal in structure. Moderate tricuspid regurgitation. Moderate pulmonary hypertension. Pulmonic Valve The pulmonary valve is normal in structure. Trace pulmonic regurgitation. Great Vessels The aortic root is normal in size. IVC is dilated and collapses <50% with inspiration. Pericardium Trace pericardial effusion. <Conclusion> Left ventricle is moderately dilated. Left ventricle is moderately dilated. Mild concentric left ventricular hypertrophy. Left ventricular systolic function is severely decreased. LVEF is 15-20%. Right ventricle is mildly dilated. Left atrium is moderately dilated. Right atrium is moderately dilated. There is severe global hypokinesis. Mild mitral regurgitation. Moderate tricuspid regurgitation. Moderate pulmonary hypertension. IVC is dilated and collapses <50% with inspiration. Trace pericardial effusion. <ELECTRONICALLY SIGNED> By: Chris Noel MD, FACC 01/27/18 1527 1527 1527 Chris Noel MD, FACC /INF
--- NOTE | 2018-01-27 15:45 | EKG ---
[place] [address] ELECTROCARDIOGRAM REPORT Name: POP FABIAN Room: [address] ADM IN M.R.#: [id number] Admission: 01/27/18 Attend Phys: Shakeel Jerome MD Discharge: Date of : 69 Report #: [id number] THIS REPORT FOR: //name// [facility] ED Test Date: 2018-01-27 Test Time: 02:02:10 Pat Name: POP FABIAN Department: Room: [facility] Gender: M Track Mechanic: : 1965 Requested By: Thanh Mei Order Number: [id number] MD: Chris Noel Measurements Intervals [place] Rate: 97 P: 81 MA: 199 QRS: 12 QRSD: 104 T: -58 QT: 391 QTc: 497 Interpretive Statements Sinus rhythm Borderline prolonged MA interval Borderline repolarization abnormality Borderline prolonged QT interval Compared to ECG 01/11/2018 13:24:07 Left ventricular hypertrophy no longer present Electronically Signed On 01-27-2018 15:44:46 CDT by Chris Noel [email or web address] <ELECTRONICALLY SIGNED> By: Chris Noel MD, [facility] 01/27/18 1544 0202 0202 Chris Noel MD, [facility] /EPI
[2018-01-27 15:56] VITALS: BP 144/96
[2018-01-27 20:00] VITALS: BP 144/102
[2018-01-28] VITALS: BP 144/86
[2018-01-28 04:00] VITALS: BP 142/91; BP 91/46
[2018-01-28 05:16] LABS: HEMATOCRIT 41.5 % (42.0-52.0); HEMOGLOBIN 13.8 gm/dL (14.0-18.0); MCH 31.4 pg (26.0-34.0); MCHC 33.3 g/dL (28.0-37.0); MCV 94.4 fL (80.0-100.0); RBC 4.4 mil/uL (4.50-6.00); RDW-CV 16.4 % (10.5-14.5)
[2018-01-28 05:36] LABS: CALCIUM 8.3 mg/dL (8.5-10.1); CREATININE 0.9 mg/dL (0.6-1.3); POTASSIUM 3.7 mmol/L (3.5-5.1); TOTAL BILIRUBIN 1.7 mg/dL (<0.1-1.0); TOTAL PROTEIN 6.3 g/dL (6.4-8.2); TROPONIN-I LEVEL 0.24 ng/mL (<0.06)
[2018-01-28 08:00] VITALS: BP 131/104
[2018-01-28 11:54] VITALS: BP 145/95
[2018-01-28 15:30] VITALS: BP 118/84
[2018-01-28 19:45] VITALS: BP 119/92
[2018-01-29] VITALS: BP 118/81
[2018-01-29 04:00] VITALS: BP 127/92
[2018-01-29 05:38] LABS: ABSOLUTE BASOPHILS 0.1 thou/uL (0.0-0.2); ABSOLUTE EOSINOPHILS 0.1 thou/uL (0.0-0.7); ABSOLUTE LYMPHOCYTES 2.7 thou/uL (0.8-5.3); ABSOLUTE MONOCYTES 0.5 thou/uL (0.0-1.2); ABSOLUTE NEUTROPHILS 3.2 thou/uL (1.6-8.1); BASOPHILS 1.1 %; EOSINOPHILS 0.8 %; HEMOGLOBIN 13.8 gm/dL (14.0-18.0); LYMPHOCYTES 40.8 %; MCH 31.3 pg (26.0-34.0); MCHC 33.7 g/dL (28.0-37.0); MONOCYTES 7.8 %; MPV 8.1 fl. (7.2-11.1); NUCLEATED RBCS 0 /100WBC; PLATELET COUNT* 201 thou/uL (150-400); POLYS 49.5 %; RBC 4.41 mil/uL (4.50-6.00); RDW-CV 16.2 % (10.5-14.5); WBC 6.5 thou/uL (4.0-11.0)
[2018-01-29 06:26] LABS: ALBUMIN 2.9 g/dL (3.4-5.0); POTASSIUM 3.9 mmol/L (3.5-5.1); TOTAL BILIRUBIN 1.6 mg/dL (<0.1-1.0); TOTAL PROTEIN 6.1 g/dL (6.4-8.2)
[2018-01-29 08:00] VITALS: BP 123/90
[2018-01-29 10:23] VITALS: BP 127/92
[2018-01-29] MEDS ORDERED: LASIX 40 MG TAB40 M2 PO (12:01)
[2018-01-29] MEDS ORDERED: CARVEDILOL12.5 MG PO (12:31)
[2018-01-29] MEDS ORDERED: KLOR-CON 1010 MEQ PO (12:39)
[2018-01-29] MEDS ORDERED: ASPIRIN81 M2 PO (12:46)
[2018-01-29] MEDS ORDERED: LIPITOR40 MG (13:08)
== END 2018-01-29 14:30 | disposition home or self-care (01) | DRG 281 ==
LOC: M.ERS 01:58 → M.TBA-ER 02:57 → M.2W 11:49
PROVIDERS: Emergency Medicine; Internal Medicine; ADMIT Internal Medicine
DX: I11.0 Hypertensive heart disease with heart failure (principal); I21.4 Non-ST elevation (NSTEMI) myocardial infarction; J90 Pleural effusion, not elsewhere classified; I50.23 Acute on chronic systolic (congestive) heart failure; I42.8 Other cardiomyopathies; F12.10 Cannabis abuse, uncomplicated; F31.9 Bipolar disorder, unspecified; F17.210 Nicotine dependence, cigarettes, uncomplicated; F41.9 Anxiety disorder, unspecified; F15.10 Other stimulant abuse, uncomplicated; F14.10 Cocaine abuse, uncomplicated; Z79.82 Long term (current) use of aspirin; Z79.899 Other long term (current) drug therapy; Z82.49 Family history of ischemic heart disease and other diseases of the circulatory system

== ENCOUNTER 2018-02-11 21:37 | Emergency (ER) | payer MEDICAID ==
[~2018-02-11] VITALS: Ht 185.4 cm; Wt 81.6 kg
[~2018-02-11 21:37] MED LIST changes: +ASPIRIN81 M2 PO; +KLOR-CON 1010 MEQ PO; +LASIX 40 MG TAB40 M2 PO; +LIPITOR40 MG
[2018-02-11 21:59] LABS: ABSOLUTE BASOPHILS 0.1 thou/uL (0.0-0.2); ABSOLUTE MONOCYTES 0.5 thou/uL (0.0-1.2); ABSOLUTE NEUTROPHILS 4.4 thou/uL (1.6-8.1); BASOPHILS 1.2 %; EOSINOPHILS 0.5 %; HEMATOCRIT 40.9 % (42.0-52.0); HEMOGLOBIN 13.7 gm/dL (14.0-18.0); LYMPHOCYTES 28.2 %; MCH 31.5 pg (26.0-34.0); MCHC 33.5 g/dL (28.0-37.0); MCV 94.3 fL (80.0-100.0); MONOCYTES 7.7 %; MPV 8.2 fl. (7.2-11.1); NUCLEATED RBCS 0 /100WBC; PLATELET COUNT* 211 thou/uL (150-400); POLYS 62.4 %; RBC 4.34 mil/uL (4.50-6.00); RDW-CV 16.2 % (10.5-14.5)
[2018-02-11 22:07] LABS: CALCIUM 8.1 mg/dL (8.5-10.1); CREATININE 1.1 mg/dL (0.6-1.3); POTASSIUM 3.7 mmol/L (3.5-5.1)
[2018-02-11 22:17] LABS: INR 1.3; PROTIME 13.6 Seconds (9.20-11.50)
[2018-02-11 22:18] LABS: TOTAL BILIRUBIN 1.3 mg/dL (<0.1-1.0); TOTAL PROTEIN 6.6 g/dL (6.4-8.2); TROPONIN-I LEVEL 0.15 ng/mL (<0.06)
[2018-02-11 23:17] LABS: URINE BILIRUBIN NEGATIVE (Negative); URINE BLOOD NEGATIVE (Negative); URINE CLARITY CLEAR; URINE COLOR YELLOW; URINE GLUCOSE-RANDOM NEGATIVE (Negative); URINE KETONES NEGATIVE (Negative); URINE LEUKOCYTES-REFLEX NEGATIVE (Negative); URINE NITRITE-REFLEX NEGATIVE (Negative); URINE PROTEIN 1+ (Negative); URINE SPECIFIC GRAVITY 1.025 (1.005-1.030); URINE UROBILINOGEN 0.2 E.U./dl (0.2-1.0)
[2018-02-11 23:23] LABS: AMP/METHAMP Negative (Negative); BARBITURATES Negative (Negative); BENZODIAZEPINES Negative (Negative); COCAINE Negative (Negative); METHADONE Negative (Negative); OPIATES Negative (Negative); PCP Negative (Negative); THC POSITIVE (Negative)
[2018-02-12 00:22] VITALS: BP 131/100
--- NOTE | 2018-02-12 15:10 | EKG ---
[place] [address] ELECTROCARDIOGRAM REPORT Name: POP FABIAN Room: [facility]#: [id number] Admission: 02/11/18 Attend Phys: Discharge: 02/12/18 Date of : 69 Report #: [id number] THIS REPORT FOR: //name// [facility] ED Test Date: 2018-02-11 Test Time: 21:43:17 Pat Name: POP FABIAN Department: Room: Gender: M Bead Flipper: JOSE : 1965 Requested By: Sanjana Verdin Order Number: [id number] MD: César Hooper Measurements Intervals [place] Rate: 104 P: 81 MN: 198 QRS: 14 QRSD: 97 T: -28 QT: 372 QTc: 490 Interpretive Statements Sinus tachycardia Borderline prolonged MN interval Borderline repolarization abnormality Borderline prolonged QT interval Compared to ECG 01/27/2018 02:02:10 Sinus rhythm no longer present Electronically Signed On 02-12-2018 15:09:59 CDT by César Hooper [email or web address] <ELECTRONICALLY SIGNED> By: Maty Hooper MD, [facility] 02/12/18 1509 42 42 Maty Hooper MD, [facility] /EPI
== END 2018-02-12 00:23 | disposition home or self-care (01) ==
LOC: M.ERS 21:37
PROVIDERS: Emergency Medicine
DX: I42.9 Cardiomyopathy, unspecified (principal); I11.0 Hypertensive heart disease with heart failure; I50.9 Heart failure, unspecified; F31.9 Bipolar disorder, unspecified; F17.210 Nicotine dependence, cigarettes, uncomplicated

== ENCOUNTER 2020-01-31 21:03 | Emergency (ER) | payer OTHER ==
[~2020-01-31] VITALS: Ht 185.4 cm; Wt 79.4 kg
[2020-01-31 21:09] VITALS: BP 107/72
[2020-01-31] MEDS ORDERED: ENTRESTO 24 MG1 EACH PO (21:11)
[2020-01-31] MEDS ORDERED: CARVEDILOL12.5 MG PO (21:11)
[2020-01-31 21:27] LABS: ABSOLUTE BASOPHILS 0.1 thou/uL (0.0-0.2); ABSOLUTE EOSINOPHILS 0.1 thou/uL (0.0-0.7); ABSOLUTE LYMPHOCYTES 2.6 thou/uL (0.8-5.3); ABSOLUTE MONOCYTES 0.7 thou/uL (0.0-1.2); BASOPHILS 0.8 %; EOSINOPHILS 1.2 %; HEMATOCRIT 41.3 % (42.0-52.0); HEMOGLOBIN 14.7 gm/dL (14.0-18.0); LYMPHOCYTES 35.2 %; MCH 32.8 pg (26.0-34.0); MCHC 35.4 g/dL (28.0-37.0); MCV 92.6 fL (80.0-100.0); MONOCYTES 9.6 %; MPV 7.5 fl. (7.2-11.1); NUCLEATED RBCS 0 /100WBC; PLATELET COUNT* 256 thou/uL (150-400); POLYS 53.2 %; RBC 4.46 mil/uL (4.50-6.00); RDW-CV 12.8 % (10.5-14.5); WBC 7.5 thou/uL (4.0-11.0)
[2020-01-31 21:33] LABS: CALCIUM 8.6 mg/dL (8.5-10.1); CREATININE 1.2 mg/dL (0.6-1.3); POTASSIUM 4.3 mmol/L (3.5-5.1)
[2020-01-31 21:44] LABS: ALBUMIN 3.7 g/dL (3.4-5.0); TOTAL BILIRUBIN 0.5 mg/dL (<0.1-1.0); TOTAL PROTEIN 7.3 g/dL (6.4-8.2)
[2020-01-31 21:58] LABS: URINE BILIRUBIN NEGATIVE (Negative); URINE BLOOD TRACE (Negative); URINE CLARITY CLEAR; URINE COLOR YELLOW; URINE GLUCOSE-RANDOM NEGATIVE (Negative); URINE KETONES NEGATIVE (Negative); URINE LEUKOCYTES-REFLEX NEGATIVE (Negative); URINE NITRITE-REFLEX NEGATIVE (Negative); URINE PROTEIN NEGATIVE (Negative); URINE SPECIFIC GRAVITY 1.015 (1.005-1.030)
[2020-01-31 22:48] LABS: AMP/METHAMP Negative (Negative); BARBITURATES Negative (Negative); BENZODIAZEPINES Negative (Negative); COCAINE Negative (Negative); METHADONE Negative (Negative); OPIATES Negative (Negative); PCP Negative (Negative); THC Negative (Negative)
[2020-02-01 00:15] VITALS: BP 89/52
--- NOTE | 2020-02-01 11:54 | EKG ---
[place] [address] ELECTROCARDIOGRAM REPORT Name: CARENPOP CORTEZ Room: [facility] M.R.#: [id number] Admission: 01/31/20 Attend Phys: Baron Arrieta, Discharge: 02/01/20 Date of : 69 Date of Service: 01/31/202109 Report #: [id number] THIS REPORT FOR: //name// [facility] ED Test Date: 2020-01-31 Test Time: 21:10:47 Pat Name: POP FABIAN Department: Room: [facility] Gender: M Detonator Maker: JANELL : 1965 Requested By: Sanjana Verdin Order Number: [id number] MD: Pop Akbar Measurements Intervals [place] Rate: 96 P: 82 KS: 188 QRS: 62 QRSD: 104 T: 191 QT: 371 QTc: 469 Interpretive Statements Sinus rhythm Probable LVH with secondary repol abnrm Compared to ECG 02/11/2018 21:43:17 Sinus tachycardia no longer present Electronically Signed On 02-01-2020 11:54:07 CDT by Pop Akbar [email or web address] <ELECTRONICALLY SIGNED> By: Pop Akbar MD, [facility] 02/01/20 1154 09 09 Pop Akbar MD, [facility] /EPI
== END 2020-02-01 00:15 | disposition short-term general hospital (02) ==
LOC: M.ERS 21:03 → M.TBA-ER 22:32 → M.ERS 22:32 → M.TBA-ER 02-01 00:15
PROVIDERS: Emergency Medicine
DX: R07.89 Other chest pain (principal); Z20.828 Contact with and (suspected) exposure to other viral communicable diseases; I11.0 Hypertensive heart disease with heart failure; I50.9 Heart failure, unspecified; F17.210 Nicotine dependence, cigarettes, uncomplicated; Z79.899 Other long term (current) drug therapy